=== PATIENT | male | born 1955 | race Caucasian/White ===

== ENCOUNTER 2016-10-20 22:27 | Inpatient (IN) | payer MEDICARE, MEDICAID ==
[~2016-10-20] VITALS: Ht 182.9 cm; Wt 82.2 kg
--- NOTE | ~2016-10-20 | CON ---
[place], [place] REPORT OF CONSULTATION NAME: ALVARO SOTO UNIT #: [id number] ROOM: [place] [address] DOCTOR: CHEY BUCKLEY MD BIRTHDATE: [birth year] DOS: 10/21/2016 ADDENDUM CARDIOLOGY CONSULTATION REASON FOR CONSULTATION: Chest pain and elevated cardiac enzymes. This note is an addendum to the note dictated by Dr. Hoa Bhagat. I personally examined and assessed the patient. Rhythm strips, labs reviewed. Case was discussed with the resident physician, Dr. Bhagat's examination and assessment reflects my work. The patient is admitted for syncope and found to have elevated cardiac enzymes and Cardiology was consulted. PHYSICAL EXAMINATION: NECK: Supple. LUNGS: Clear anteriorly. HEART: Regular rhythm. DIAGNOSES: 1. [id number] myocardial infarction. 2. Syncope. 3. History of hypertension. 4. History of dyslipidemia. 5. Remote tobacco use. 6. Abnormal stress test in 2016. RECOMMENDATIONS: 1. Cardiac catheterization is recommended due to his elevated cardiac enzymes and CAD risk factors and abnormal stress test last year. 2. Risks, complications discussed and he is agreeable to proceed with cardiac catheterization today at [facility] in [place], [place]. 3. Continue the aspirin, beta-corrina, statins, MELISSA inhibitors and heparin. Again, this note is an addendum to the note dictated by Dr. Hoa Bhagat. [place], [place] REPORT OF CONSULTATION NAME: ALVARO SOTO UNIT #: [id number] ROOM: [place] [address] DOCTOR: CHEY BUCKLEY MD BIRTHDATE: [birth year] CHEY BUCKLEY MD CM:CONSTR:REPORT OF CONSULTATION 1146 10/22/16 0632 interface
--- NOTE | ~2016-10-20 | CON ---
[place], [place] REPORT OF CONSULTATION [id number] UNIT #: [id number] ROOM: [place] [address] DOCTOR: YAYO ADDISON MD BIRTHDATE: [birth year] DOS: 10/21/2016 PSYCHIATRIC CONSULT CHIEF COMPLAINT: "The whole last 27 hours are blank for me." HISTORY OF PRESENT ILLNESS: This is a 60-year-old white male who was brought in to the Emergency Room after he awoke on the kitchen floor. He was uncertain how long he had been there. When brought in to the Emergency Room at [facility] with the diagnosis of syncope, he was ultimately sent to ICU for further evaluation of an NC. From a psychiatric standpoint, the patient follows with Aniyah Nuñez, a nurse practitioner at the [facility]. He is currently prescribed Abilify 15 mg a day, Klonopin 1 mg t.i.d. p.r.n., Cymbalta 60 mg a day, Remeron 60 mg a day and Ambien 10 mg a day and he has been on the Ambien for several years without interruption MENTAL STATUS: He is alert and oriented, stating that he feels that his current medications work. He denies side effects from them. He, however, is willing to allow me to adjust further; however, he is being transferred to another hospital for a cardiac catheterization at this point. DIAGNOSIS: Bipolar type 2. PLAN: At this point, I really cannot do anything different with his medications as his cardiac issues are primary. I would, however, consider lowering his Remeron from 60 mg a day, which is an extremely high dose, down to 15 mg a day. This dose of Remeron would provide maximum sedation and may allow him then to discontinue the Ambien, which has been chronic in nature. He also reports to me that he has gained in excess of 20 pounds over the last year and he has never been tested for sleep apnea. He reports frequent awakenings throughout the night and waking up in the morning, being extremely fatigued. I strongly recommend that he would go for sleep studies to rule out the possibility of sleep apnea. His psychotropic regimen is quite complicated and redundant, and I do believe that if reviewed his medications can be streamlined so that he is less symptomatic and has less potential side effects. This can be done all as an outpatient. YAYO ADDISON MD CM:CONSTR:REPORT OF CONSULTATION 0934 10/22/16 0156 interface
[~2016-10-20 22:27] MED LIST: ABILIFY15 MG PO; ABILIFY20 MG PO; ALBUTEROL0.09 MG/A2 INH; ALENDRONATE SOD70 M1 PO; AMBIEN10 M1 PO; ANTIVERT/2525 MG PO; ASPIRIN CHEWABL81 M1 PO; ATORVASTATIN CA80 M1 PO; B-COMPLEX-501 CAP PO; BACTRIM DS 8001 TA1 PO; BACTROBAN CREAM15 GM T; CEFTRIAXON1 GM/50 ML IV; CELEBREX100 MG PO; CELEBREX200 MG PO; CLINDAMYCIN HC300 MG PO; CLINDAMYCIN PHOSPH1% T; CLINDAMYCIN300 MG PO; CLONAZEPAM0.5 M2 PO; CLONAZEPAM1 MG PO; CYMBALTA60 M1 PO; CYMBALTA60 MG PO; DARVOCET N 1001 TAB PO; DIAZIDE PO; DOXYCYCLINE100 M3 PO; DYAZIDE 25 MG-31 CAP PO; FOSAMAX70 M1 PO; HYDROCODONE BIT1 T11 PO; KEFLEX500 MG PO; KEPPRA500 MG PO; KLONOPIN WAFERS2 MG PO; KLONOPIN1 M1 PO; LAMICTAL100 MG PO; LAMICTAL200 MG PO; LASIX20 MG PO; LASIX40 MG PO; LISINOPRIL10 M1 PO; LOPRESSOR25 MG PO; MAPAP325 MG PO; MOBIC7.5 MG PO; MOTRIN800 MG PO; MULTI VITAMINS1 TAB PO; NATURE'S BLEND F1 MG PO; NORCO 5-325 TA1 EACH PO; NORCO 7.5-3251 EACH PO; OYSTER SHELL 51 EACH PO; Oscal,Oyster S500 MG PO; PERCOCET 325 MG1 TA2 PO; PERCOCET 325 MG1 TA5 PO; PROAIR HFA8.5 GM IH; PROAIR HFA8.5 GM INH; REMERON SOLTAB15 MG PO; REMERON SOLTAB30 MG PO; REMERON30 M1 PO; SIMVASTATIN20 MG PO; THE MEDICINE S400 IU PO; TOPAMAX25 M3 PO; TOPROL XL25 MG PO; TOPROL XL50 M1 PO; TRAMADOL HCL50 MG PO; TRAMADOL50 MG PO; TRIAMTERENE & H1 CA1 PO; TRIAMTERENE & H1 CAP PO; TRIAMTERENE AND1 TA1 PO; VIBRAMYCIN100 MG PO; VICODIN 500 MG-1 TAB PO; VITAMIN D1000 IU PO; ZANTAC 150150 MG PO; ZANTAC150 MG PO; ZESTRIL10 MG PO; ZITHROMAX Z PA250 MG PO; ZOCOR20 MG PO
[2016-10-20 22:32] VITALS: BP 136/100
[2016-10-20] MEDS ORDERED: LIPITOR10 MG PO (22:41)
[2016-10-20] MEDS ORDERED: LASIX40 MG PO (22:41)
[2016-10-20] MEDS ORDERED: VITAMIN D31000 IU PO (22:42)
[2016-10-20 23:12] LABS: HEMATOCRIT 34.3 % (42.0-52.0); HEMOGLOBIN 11.7 g/dl (14.0-18.0); MEAN CELL VOLUME 88.4 fl (80.0-94.0); MEAN CORPUSCULAR HGB 30.2 pg (27.0-31.0); MEAN CORPUSCULAR HGB CONC 34.1 g/dl (33.0-37.0); MEAN PLATELET VOLUME 7.5 fl (9.6-12.3); PLATELET COUNT AUTOMATED 415 10*3/uL (130-400); RED BLOOD COUNT 3.88 10*6/uL (4.50-5.90); RED CELL DISTRI WIDTH 15.9 % (0-14.5); WHITE BLOOD COUNT 15.9 10*3/uL (4.8-10.8)
[2016-10-20 23:30] LABS: BUN 13 mg/dl (7-24); CARBON DIOXIDE 30 mmol/L (21-32); CHLORIDE 91 mmol/L (98-107); CPK 160 U/L (39-308); EST GLOM FILT AFRICAN AMERICAN > 60 ml/min; GLUCOSE 117 mg/dL (65-99); MAGNESIUM 2.5 mg/dL (1.5-2.1); POTASSIUM 3.5 mmol/L (3.5-5.1); SODIUM 132 mmol/L (136-145)
[2016-10-20 23:33] LABS: BASOPHIL # 0.3 10*3/uL (0-0.1); BASOPHILS 2 % (0-1); LYMPHOCYTE # 2.2 10*3/uL (1.3-4.4); METAMYELOCYTES 1 % (0-0); MONOCYTE # 1.9 10*3/uL (0.1-1.0); MYELOCYTES 2 % (0-0); NEUTROPHILS 69 % (47-73); TOTAL CELLS COUNTED 100 #CELLS
[2016-10-20 23:34] LABS: PLATELET SUFFICIENCY HIGH (NORMAL)
[2016-10-20 23:35] LABS: C-REACTIVE PROTEIN < 0.29 MG/DL (0-0.3)
[2016-10-21 00:30] VITALS: BP 141/88
[2016-10-21 00:50] LABS: INTERNATIONAL NORM RATIO 0.9 (2.0-3.5); PROTHROMBIN TIME 9.5 SECONDS (9.0-12.4)
[2016-10-21 01:21] VITALS: BP 127/73
[2016-10-21 01:30] VITALS: BP 143/89
[2016-10-21] MEDS ORDERED: FOSAMAX70 M1 PO (02:27)
[2016-10-21 04:00] VITALS: BP 96/65
[2016-10-21 06:45] LABS: HEMATOCRIT 31.5 % (42.0-52.0); HEMOGLOBIN 10.6 g/dl (14.0-18.0); MEAN CELL VOLUME 89.5 fl (80.0-94.0); MEAN CORPUSCULAR HGB 30.1 pg (27.0-31.0); MEAN CORPUSCULAR HGB CONC 33.7 g/dl (33.0-37.0); MEAN PLATELET VOLUME 7.7 fl (9.6-12.3); PLATELET COUNT AUTOMATED 382 10*3/uL (130-400); RED BLOOD COUNT 3.52 10*6/uL (4.50-5.90); WHITE BLOOD COUNT 17.4 10*3/uL (4.8-10.8)
[2016-10-21 07:02] LABS: CKMB 11.2 ng/ml (0.5-3.6); TROPONIN I 6.26 ng/ml (<0.045)
[2016-10-21 07:04] LABS: HEMOGLOBIN A1c 6.6 % (4.8-5.6)
[2016-10-21 07:10] LABS: BASOPHIL # 0.2 10*3/uL (0-0.1); BASOPHILS 1 % (0-1); LYMPHOCYTE # 1.9 10*3/uL (1.3-4.4); METAMYELOCYTES 2 % (0-0); NEUTROPHIL # 13.9 10*3/uL (2.3-7.9); NEUTROPHILS 80 % (47-73); TOTAL CELLS COUNTED 100 #CELLS
[2016-10-21 07:11] LABS: PLATELET SUFFICIENCY NORMAL (NORMAL); POLYCHROMASIA SLIGHT
[2016-10-21 07:18] LABS: PROTHROMBIN TIME 10.1 SECONDS (9.0-12.4)
[2016-10-21 07:28] LABS: CHLORIDE 95 mmol/L (98-107); POTASSIUM 3.8 mmol/L (3.5-5.1); SODIUM 133 mmol/L (136-145)
[2016-10-21 07:41] LABS: ALBUMIN 3.2 gm/dl (3.1-4.5); ALKALINE PHOSPHATASE 67 U/L (45-117); BILIRUBIN, TOTAL 0.5 mg/dl (0.2-1.0); BUN 12 mg/dl (7-24); CARBON DIOXIDE 30 mmol/L (21-32); CHOLESTEROL 164 mg/dL (<200); EST GLOM FILT AFRICAN AMERICAN > 60 ml/min; FREE T4 0.96 ng/dl (0.76-1.46); GLUCOSE 124 mg/dL (65-99); HDL CHOLESTEROL 87 mg/dl (40-60); LDL CHOLESTEROL 64 mg/dL (9-159); MAGNESIUM 1.9 mg/dL (1.5-2.1); PHOSPHOROUS 2.6 mg/dL (2.5-4.9); SGOT/AST 31 IU/L (3-35); SGPT/ALT 39 U/L (12-78); THYROID STIM HORMONE (HS) 0.725 uIU/ml (0.358-4.75); TOTAL PROTEIN 6.1 gm/dL (6.4-8.2); TRIGLYCERIDES 67 mg/dl (<150); VLDL CHOLESTEROL 13 mg/dL (6-40)
[2016-10-21 08:00] VITALS: BP 124/75
[2016-10-21 09:27] LABS: FOLIC ACID 22.31 ng/mL (>5.38)
[2016-10-21 10:00] LABS: VITAMIN D, 25-HYDROXY 21.5 ng/mL (30-100)
[2016-10-21 12:42] LABS: CKMB 7.8 ng/ml (0.5-3.6); TROPONIN I 4.53 ng/ml (<0.045)
== END 2016-10-21 12:20 | disposition other institution (70) | DRG 281 ==
LOC: ED 22:27 → EDHOLD 23:59 → ICCU 23:59
PROVIDERS: Emergency Medicine Emergency Medical Services; Student in an Organized Health Care Education/Training Program
DX: I21.4 Non-ST elevation (NSTEMI) myocardial infarction (principal); E44.0 Moderate protein-calorie malnutrition; R65.10 Systemic inflammatory response syndrome (SIRS) of non-infectious origin without acute organ dysfunction; E87.1 Hypo-osmolality and hyponatremia; E11.65 Type 2 diabetes mellitus with hyperglycemia; E83.41 Hypermagnesemia; E83.51 Hypocalcemia; F31.9 Bipolar disorder, unspecified; I10 Essential (primary) hypertension; R00.0 Tachycardia, unspecified; D72.829 Elevated white blood cell count, unspecified; D64.9 Anemia, unspecified; D47.3 Essential (hemorrhagic) thrombocythemia; M81.0 Age-related osteoporosis without current pathological fracture; R26.9 Unspecified abnormalities of gait and mobility; M54.9 Dorsalgia, unspecified; M48.00 Spinal stenosis, site unspecified; E53.8 Deficiency of other specified B group vitamins; E55.9 Vitamin D deficiency, unspecified; Z87.891 Personal history of nicotine dependence; I25.2 Old myocardial infarction; Z68.24 Body mass index [BMI] 24.0-24.9, adult; Z88.0 Allergy status to penicillin; Z88.1 Allergy status to other antibiotic agents; R55 Syncope and collapse

== ENCOUNTER 2017-01-16 13:25 | Emergency (ER) | payer MEDICARE, MEDICAID ==
[~2017-01-16] VITALS: Ht 180.3 cm; Wt 86.2 kg
[~2017-01-16 13:25] MED LIST changes: +LIPITOR10 MG PO; +VITAMIN D31000 IU PO
[2017-01-16 15:50] LABS: RED CELL DISTRI WIDTH 14.1 % (0-14.5)
[2017-01-16 15:56] LABS: INTERNATIONAL NORM RATIO 0.9 (2.0-3.5); PROTHROMBIN TIME 9.6 SECONDS (9.0-12.4)
[2017-01-16 16:04] LABS: ALBUMIN 3.8 gm/dl (3.1-4.5); ALKALINE PHOSPHATASE 102 U/L (45-117); BILIRUBIN, TOTAL 0.4 mg/dl (0.2-1.0); BUN 20 mg/dl (7-24); CARBON DIOXIDE 29 mmol/L (21-32); CHLORIDE 90 mmol/L (98-107); EST GLOM FILT AFRICAN AMERICAN > 60 ml/min; GLUCOSE 154 mg/dL (65-99); POTASSIUM 4.4 mmol/L (3.5-5.1); SGOT/AST 27 IU/L (3-35); SGPT/ALT 41 U/L (12-78); SODIUM 128 mmol/L (136-145)
[2017-01-16 16:40] LABS: HEMATOCRIT 36.8 % (42.0-52.0); HEMOGLOBIN 12.5 g/dl (14.0-18.0); MEAN CELL VOLUME 92.5 fl (80.0-94.0); MEAN CORPUSCULAR HGB 31.4 pg (27.0-31.0); PLATELET COUNT AUTOMATED 338 10*3/uL (130-400); RED BLOOD COUNT 3.98 10*6/uL (4.50-5.90); WHITE BLOOD COUNT 15.6 10*3/uL (4.8-10.8)
[2017-01-16 17:00] LABS: LYMPHOCYTE # 1.2 10*3/uL (1.3-4.4); METAMYELOCYTES 1 % (0-0); MONOCYTE # 0.6 10*3/uL (0.1-1.0); NEUTROPHIL # 13.6 10*3/uL (2.3-7.9); NEUTROPHILS 87 % (47-73); PLATELET SUFFICIENCY NORMAL (NORMAL); TOTAL CELLS COUNTED 100 #CELLS
[2017-01-16 17:01] LABS: POLYCHROMASIA SLIGHT
== END 2017-01-16 21:43 | disposition short-term general hospital (02) ==
LOC: ED 13:25
PROVIDERS: Nurse Practitioner Family
DX: S72.002A Fracture of unspecified part of neck of left femur, initial encounter for closed fracture (principal); Z88.0 Allergy status to penicillin; Z88.1 Allergy status to other antibiotic agents; Z79.899 Other long term (current) drug therapy; W18.39XA Other fall on same level, initial encounter; Y93.01 Activity, walking, marching and hiking; Y92.89 Other specified places as the place of occurrence of the external cause; Y99.8 Other external cause status

== ENCOUNTER 2017-03-19 15:55 | Emergency (ER) | payer MEDICARE, MEDICAID ==
[~2017-03-19] VITALS: Wt 83.9 kg
[2017-03-19 17:17] LABS: BASO # 0.1 10*3/uL (0.0-0.1); BASO % 0.9 % (0.0-1.0); EOS # 0.4 10*3/uL (0.0-0.4); EOS % 4.3 % (1.0-4.0); HEMATOCRIT 32.7 % (42.0-52.0); HEMOGLOBIN 10.2 g/dl (14.0-18.0); LYMPH # 2.2 10*3/uL (1.3-4.4); LYMPH % 23.7 % (27.0-41.0); MEAN CELL VOLUME 89.6 fl (80.0-94.0); MEAN CORPUSCULAR HGB 27.9 pg (27.0-31.0); MEAN CORPUSCULAR HGB CONC 31.2 g/dl (33.0-37.0); MEAN PLATELET VOLUME 8.4 fl (9.6-12.3); MONO # 0.8 10*3/uL (0.1-1.0); MONO % 8.5 % (3.0-9.0); NEUT # 5.7 10*3/uL (2.3-7.9); NEUT % 61.8 % (47.0-73.0); PLATELET COUNT AUTOMATED 400 10*3/uL (130-400); RED BLOOD COUNT 3.65 10*6/uL (4.50-5.90); RED CELL DISTRI WIDTH 14.2 % (0-14.5); WHITE BLOOD COUNT 9.3 10*3/uL (4.8-10.8)
[2017-03-19 17:31] LABS: ALBUMIN 3.1 gm/dl (3.1-4.5); ALKALINE PHOSPHATASE 99 U/L (45-117); BUN 10 mg/dl (7-24); CHLORIDE 101 mmol/L (98-107); CREATININE 1.12 mg/dL (0.70-1.30); POTASSIUM 4.4 mmol/L (3.5-5.1); SGOT/AST 15 IU/L (3-35); SGPT/ALT 18 U/L (12-78); SODIUM 137 mmol/L (136-145); TOTAL PROTEIN 6.4 gm/dL (6.4-8.2)
[2017-03-19] MEDS ORDERED: bactrim ds PO (18:17)
[2017-03-19 19:20] LABS: ACT PARTIAL THROMBO TIME 29.2 SECONDS (20.8-31.5)
== END 2017-03-19 18:51 | disposition home or self-care (01) ==
LOC: ED 15:55
PROVIDERS: Physician Assistant
DX: L03.115 Cellulitis of right lower limb (principal); Z88.0 Allergy status to penicillin; Z88.1 Allergy status to other antibiotic agents; Z79.899 Other long term (current) drug therapy

== ENCOUNTER 2017-04-03 18:27 | Inpatient (IN) | payer MEDICARE, MEDICAID ==
[~2017-04-03] VITALS: Ht 180.3 cm; Wt 84.6 kg
--- NOTE | ~2017-04-03 | PR ---
[place], [place] PROGRESS NOTE NAME: ALVARO SOTO [facility] #: [id number] UNIT #: [id number] ROOM: 526 DOCTOR: KAYLYN BUCK MD BIRTHDATE: [birth year] DOS: 04/04/2017 SUBJECTIVE: The patient has been admitted to hospital from Emergency Room with cellulitis of the right leg. He was being treated as outpatient for this, but was not getting better, so he came to Emergency Department from where he needed to be admitted to hospital. The patient has past history of chronic pain, bipolar disorder, degenerative disk disease of the neck and back, depression, folic acid deficiency, fractured pelvis in the past, difficulty in walking herniated disk, history of fracture of the left femur neck, malnutrition due to low protein deficiency, osteoporosis, sacral plexus, spinal stenosis. The patient is feeling little better. He states his pain in the legs is better. His swelling and redness of leg is showing some improvement. His CBC showed hypochromic anemia with hemoglobin 8.8, hematocrit 27.4. Basic metabolic profile shows calcium 8.4, other values are all normal. Lipid profile is normal. Hemoglobin A1c 5.8. Vitamin B12 and folic acid and vitamin D all are normal. The patient will be continued on the present treatment. KAYLYN BUCK MD CM:PNHAWA [id number] KAYLYN BUCK MD 04/07/17 0541 interface
--- NOTE | ~2017-04-03 | PR ---
[place], [place] PROGRESS NOTE NAME: ALVARO SOTO [facility] #: [id number] UNIT #: [id number] ROOM: 526 DOCTOR: KAYLYN BUCK MD BIRTHDATE: [birth year] DOS: SUBJECTIVE: A 61-year-old male who has been admitted to hospital with cellulitis of the right leg and he has also difficulty in walking due to severe problem with the chronic backache and radiculopathy and his MRSA surveillance was negative. Venous ultrasound of the lower extremity did not show any evidence of deep vein thrombosis. B12 and folic acid is normal. Hemoglobin A1c 5.8. The patient is feeling somewhat better. Swelling of the leg is better. OBJECTIVE: VITAL SIGNS: His blood pressure 136/58, pulse is 77, respirations 20 and temperature 97.3. CHEST: Clear. HEART: Regular. ABDOMEN: Soft. KAYLYN BUCK MD CM:PNTRANS [id number] KAYLYN BUCK MD 04/05/17 1509 interface
[~2017-04-03 18:27] MED LIST changes: +bactrim ds PO
[2017-04-03 18:45] VITALS: BP 122/74
[2017-04-03 19:24] LABS: BASO # 0.1 10*3/uL (0.0-0.1); BASO % 0.8 % (0.0-1.0); EOS # 0.4 10*3/uL (0.0-0.4); EOS % 6.1 % (1.0-4.0); HEMATOCRIT 31.1 % (42.0-52.0); HEMOGLOBIN 9.7 g/dl (14.0-18.0); LYMPH # 1.4 10*3/uL (1.3-4.4); LYMPH % 24.4 % (27.0-41.0); MEAN CELL VOLUME 89.9 fl (80.0-94.0); MEAN CORPUSCULAR HGB CONC 31.2 g/dl (33.0-37.0); MEAN PLATELET VOLUME 8.5 fl (9.6-12.3); MONO # 0.6 10*3/uL (0.1-1.0); MONO % 10.9 % (3.0-9.0); NEUT # 3.3 10*3/uL (2.3-7.9); NEUT % 56.8 % (47.0-73.0); PLATELET COUNT AUTOMATED 472 10*3/uL (130-400); RED BLOOD COUNT 3.46 10*6/uL (4.50-5.90); RED CELL DISTRI WIDTH 15.4 % (0-14.5); WHITE BLOOD COUNT 5.9 10*3/uL (4.8-10.8)
[2017-04-03 19:25] VITALS: BP 121/73
[2017-04-03 19:43] LABS: ALBUMIN 2.8 gm/dl (3.1-4.5); ALKALINE PHOSPHATASE 202 U/L (45-117); BUN 11 mg/dl (7-24); CHLORIDE 95 mmol/L (98-107); CREATININE 1.21 mg/dL (0.70-1.30); POTASSIUM 4.2 mmol/L (3.5-5.1); SGOT/AST 49 IU/L (3-35); SGPT/ALT 50 U/L (12-78); SODIUM 133 mmol/L (136-145); TOTAL PROTEIN 7.2 gm/dL (6.4-8.2); TROPONIN I 0.024 ng/ml (<0.045)
[2017-04-03 20:44] VITALS: BP 125/85
[2017-04-04] VITALS: BP 123/61
[2017-04-04 06:27] LABS: BASO % 0.7 % (0.0-1.0); EOS # 0.4 10*3/uL (0.0-0.4); EOS % 6.8 % (1.0-4.0); HEMATOCRIT 27.4 % (42.0-52.0); HEMOGLOBIN 8.8 g/dl (14.0-18.0); LYMPH # 1.4 10*3/uL (1.3-4.4); LYMPH % 25.8 % (27.0-41.0); MEAN CORPUSCULAR HGB 27.9 pg (27.0-31.0); MEAN CORPUSCULAR HGB CONC 32.1 g/dl (33.0-37.0); MEAN PLATELET VOLUME 8.3 fl (9.6-12.3); MONO # 0.6 10*3/uL (0.1-1.0); MONO % 11.4 % (3.0-9.0); NEUT # 2.9 10*3/uL (2.3-7.9); PLATELET COUNT AUTOMATED 426 10*3/uL (130-400); RED BLOOD COUNT 3.15 10*6/uL (4.50-5.90); RED CELL DISTRI WIDTH 15.3 % (0-14.5); WHITE BLOOD COUNT 5.4 10*3/uL (4.8-10.8)
[2017-04-04 07:02] LABS: BUN 8 mg/dl (7-24); CHLORIDE 101 mmol/L (98-107); CHOLESTEROL 159 mg/dL (<200); CREATININE 0.94 mg/dL (0.70-1.30); HDL CHOLESTEROL 59 mg/dl (40-60); LDL CHOLESTEROL 79 mg/dL (9-159); PHOSPHOROUS 3.9 mg/dL (2.5-4.9); POTASSIUM 3.9 mmol/L (3.5-5.1); SODIUM 138 mmol/L (136-145); TRIGLYCERIDES 105 mg/dl (<150); VLDL CHOLESTEROL 21 mg/dL (6-40)
[2017-04-04 08:00] VITALS: BP 160/70
[2017-04-04 08:25] LABS: VITAMIN D, 25-HYDROXY 34.7 ng/mL (30-100)
[2017-04-04 16:00] VITALS: BP 122/64
[2017-04-05] VITALS: BP 115/69
[2017-04-05 08:00] VITALS: BP 136/58
[2017-04-05 12:00] VITALS: BP 138/60
[2017-04-05 16:00] VITALS: BP 145/63
[2017-04-05 20:00] VITALS: BP 151/69
[2017-04-06] VITALS: BP 152/75
[2017-04-06 08:00] VITALS: BP 148/83
[2017-04-06 16:00] VITALS: BP 140/77
[2017-04-06 20:00] VITALS: BP 177/73
[2017-04-07] VITALS (7 sets, daily range): BP systolic 156–184; BP diastolic 70–92
[2017-04-07 07:04] LABS: BASO # 0.1 10*3/uL (0.0-0.1); BASO % 0.7 % (0.0-1.0); EOS # 0.4 10*3/uL (0.0-0.4); EOS % 6.3 % (1.0-4.0); HEMATOCRIT 27.7 % (42.0-52.0); LYMPH # 1.4 10*3/uL (1.3-4.4); LYMPH % 19.9 % (27.0-41.0); MEAN CELL VOLUME 87.4 fl (80.0-94.0); MEAN CORPUSCULAR HGB 28.4 pg (27.0-31.0); MEAN CORPUSCULAR HGB CONC 32.5 g/dl (33.0-37.0); MEAN PLATELET VOLUME 8.6 fl (9.6-12.3); MONO # 0.6 10*3/uL (0.1-1.0); MONO % 9.4 % (3.0-9.0); NEUT # 4.2 10*3/uL (2.3-7.9); NEUT % 62.7 % (47.0-73.0); PLATELET COUNT AUTOMATED 491 10*3/uL (130-400); RED BLOOD COUNT 3.17 10*6/uL (4.50-5.90); RED CELL DISTRI WIDTH 15.3 % (0-14.5); WHITE BLOOD COUNT 6.8 10*3/uL (4.8-10.8)
[2017-04-07 07:33] LABS: ALBUMIN 2.8 gm/dl (3.1-4.5); ALKALINE PHOSPHATASE 182 U/L (45-117); BUN 6 mg/dl (7-24); CHLORIDE 102 mmol/L (98-107); CREATININE 0.88 mg/dL (0.70-1.30); SGOT/AST 28 IU/L (3-35); SGPT/ALT 34 U/L (12-78); SODIUM 137 mmol/L (136-145); TOTAL PROTEIN 6.5 gm/dL (6.4-8.2)
[2017-04-08] VITALS: BP 156/75
[2017-04-08 06:36] LABS: BASO # 0.1 10*3/uL (0.0-0.1); BASO % 0.9 % (0.0-1.0); EOS # 0.4 10*3/uL (0.0-0.4); EOS % 6.6 % (1.0-4.0); HEMATOCRIT 29.5 % (42.0-52.0); HEMOGLOBIN 9.3 g/dl (14.0-18.0); LYMPH # 1.5 10*3/uL (1.3-4.4); LYMPH % 22.3 % (27.0-41.0); MEAN CELL VOLUME 86.5 fl (80.0-94.0); MEAN CORPUSCULAR HGB 27.3 pg (27.0-31.0); MEAN CORPUSCULAR HGB CONC 31.5 g/dl (33.0-37.0); MEAN PLATELET VOLUME 8.3 fl (9.6-12.3); MONO # 0.7 10*3/uL (0.1-1.0); MONO % 10.5 % (3.0-9.0); NEUT # 3.9 10*3/uL (2.3-7.9); NEUT % 58.5 % (47.0-73.0); PLATELET COUNT AUTOMATED 493 10*3/uL (130-400); RED BLOOD COUNT 3.41 10*6/uL (4.50-5.90); RED CELL DISTRI WIDTH 15.6 % (0-14.5); WHITE BLOOD COUNT 6.7 10*3/uL (4.8-10.8)
[2017-04-08 06:59] LABS: ALBUMIN 2.9 gm/dl (3.1-4.5); ALKALINE PHOSPHATASE 175 U/L (45-117); BUN 8 mg/dl (7-24); CHLORIDE 100 mmol/L (98-107); CREATININE 1.07 mg/dL (0.70-1.30); POTASSIUM 3.7 mmol/L (3.5-5.1); SGOT/AST 23 IU/L (3-35); SGPT/ALT 31 U/L (12-78); SODIUM 136 mmol/L (136-145); TOTAL PROTEIN 6.5 gm/dL (6.4-8.2)
[2017-04-08 08:00] VITALS: BP 138/86
[2017-04-08] MEDS ORDERED: CEPHALEXIN500 M1 PO (13:17)
[2017-04-08] MEDS ORDERED: DOXYCYCLINE100 M3 PO (13:17)
== END 2017-04-08 15:54 | disposition home or self-care (01) | DRG 603 ==
LOC: ED 18:27 → 5E 21:18 → EDHOLD 21:18 → 5E 21:30
PROVIDERS: Internal Medicine Hospice and Palliative Medicine; Nurse Practitioner Family; Student in an Organized Health Care Education/Training Program; ADMIT Internal Medicine
DX: L03.115 Cellulitis of right lower limb (principal); E44.0 Moderate protein-calorie malnutrition; E87.1 Hypo-osmolality and hyponatremia; R74.0 Nonspecific elevation of levels of transaminase and lactic acid dehydrogenase [LDH]; M51.35 Other intervertebral disc degeneration, thoracolumbar region; M81.0 Age-related osteoporosis without current pathological fracture; D64.9 Anemia, unspecified; I25.10 Atherosclerotic heart disease of native coronary artery without angina pectoris; F31.9 Bipolar disorder, unspecified; M54.9 Dorsalgia, unspecified; G89.29 Other chronic pain; E53.8 Deficiency of other specified B group vitamins; F41.1 Generalized anxiety disorder; E55.9 Vitamin D deficiency, unspecified; I10 Essential (primary) hypertension; K21.9 Gastro-esophageal reflux disease without esophagitis; G47.00 Insomnia, unspecified; Z79.01 Long term (current) use of anticoagulants; Z79.82 Long term (current) use of aspirin; Z78.9 Other specified health status; Z88.0 Allergy status to penicillin; Z88.8 Allergy status to other drugs, medicaments and biological substances; Z68.32 Body mass index [BMI] 32.0-32.9, adult; Z66 Do not resuscitate; Z51.5 Encounter for palliative care

== ENCOUNTER 2020-07-09 14:42 | Inpatient (IN) | payer OTHER ==
[~2020-07-09] VITALS: Ht 180 cm; Wt 88.5 kg
[~2020-07-09 14:42] MED LIST changes: +CEPHALEXIN500 M1 PO
[2020-07-09 14:43] VITALS: BP 97/46
[2020-07-09 15:54] LABS: BASO # 0.1 10*3/uL (0.0-0.1); BASO % 0.5 % (0.0-1.0); EOS # 0.2 10*3/uL (0.0-0.4); EOS % 1.9 % (1.0-4.0); HEMATOCRIT 38.5 % (42.0-52.0); LYMPH # 1.3 10*3/uL (1.3-4.4); LYMPH % 13.3 % (27.0-41.0); MEAN CELL VOLUME 85.4 fl (80.0-94.0); MEAN CORPUSCULAR HGB 29.5 pg (27.0-31.0); MEAN CORPUSCULAR HGB CONC 34.5 g/dl (33.0-37.0); MEAN PLATELET VOLUME 8.7 fl (9.6-12.3); MONO # 0.6 10*3/uL (0.1-1.0); MONO % 5.7 % (3.0-9.0); NEUT # 7.7 10*3/uL (2.3-7.9); NEUT % 78.1 % (47.0-73.0); PLATELET COUNT AUTOMATED 352 10*3/uL (130-400); RED BLOOD COUNT 4.51 10*6/uL (4.50-5.90); RED CELL DISTRI WIDTH 13.2 % (0-14.5); WHITE BLOOD COUNT 9.9 10*3/uL (4.8-10.8)
[2020-07-09 16:00] VITALS: BP 94/56
[2020-07-09 16:03] LABS: ACT PARTIAL THROMBO TIME 26.6 SECONDS (20.0-32.1); INTERNATIONAL NORM RATIO 0.9 (2.0-3.5)
[2020-07-09 16:09] LABS: ALBUMIN 3.8 gm/dl (3.1-4.5); CREATININE 2.27 mg/dL (0.70-1.30); POTASSIUM 3.5 mmol/L (3.5-5.1); TOTAL PROTEIN 7.9 gm/dL (6.4-8.2); TROPONIN I 0.042 ng/ml (<0.045)
[2020-07-09 19:57] VITALS: BP 98/48
[2020-07-09 20:35] VITALS: BP 147/95
[2020-07-09 20:42] LABS: CREATININE 2.12 mg/dL (0.70-1.30); POTASSIUM 3.1 mmol/L (3.5-5.1)
[2020-07-09] MEDS ORDERED: GABAPENTIN100 M2 PO (21:33)
[2020-07-09] MEDS ORDERED: ATARAX,VISTARIL10 MG PO (21:34)
[2020-07-09] MEDS ORDERED: B COMPLEX1 EACH PO (21:36)
[2020-07-09] MEDS ORDERED: LASIX20 MG PO (21:37)
[2020-07-09 23:35] LABS: BILIRUBIN Negative (Negative); BLOOD Negative (Negative); CLARITY Clear (Clear); COLOR Yellow (Yellow); GLUCOSE 3+ (Negative); KETONE Negative (Negative); LEUKO ESTERASE Negative (Negative); NITRITE Negative (Negative); PH 5.5 (4.5-8.0); UROBILINOGEN 0.2 E.U./dl (0.0-1.0)
[2020-07-09 23:53] LABS: RBC 0-2 rbc/hpf (0-2); WBC 0-2 wbc/hpf (0-5)
[2020-07-10] VITALS: BP 80/49
[2020-07-10 00:18] LABS: CREATININE 2.02 mg/dL (0.70-1.30); POTASSIUM 2.7 mmol/L (3.5-5.1)
[2020-07-10 00:34] LABS: URINE CREATININE RANDOM 48.3 mg/dL
[2020-07-10 06:47] LABS: BASO # 0.1 10*3/uL (0.0-0.1); BASO % 0.6 % (0.0-1.0); EOS # 0.3 10*3/uL (0.0-0.4); EOS % 3.1 % (1.0-4.0); HEMATOCRIT 31.8 % (42.0-52.0); LYMPH # 1.9 10*3/uL (1.3-4.4); LYMPH % 23.8 % (27.0-41.0); MEAN CELL VOLUME 86.9 fl (80.0-94.0); MEAN CORPUSCULAR HGB 29.8 pg (27.0-31.0); MEAN CORPUSCULAR HGB CONC 34.3 g/dl (33.0-37.0); MEAN PLATELET VOLUME 8.8 fl (9.6-12.3); MONO # 0.5 10*3/uL (0.1-1.0); MONO % 6.4 % (3.0-9.0); NEUT # 5.3 10*3/uL (2.3-7.9); NEUT % 65.6 % (47.0-73.0); PLATELET COUNT AUTOMATED 309 10*3/uL (130-400); RED BLOOD COUNT 3.66 10*6/uL (4.50-5.90); RED CELL DISTRI WIDTH 13.2 % (0-14.5); WHITE BLOOD COUNT 8.1 10*3/uL (4.8-10.8)
[2020-07-10 07:25] LABS: ALBUMIN 3.1 gm/dl (3.1-4.5); CREATININE 1.66 mg/dL (0.70-1.30); POTASSIUM 3.1 mmol/L (3.5-5.1); TOTAL PROTEIN 6.3 gm/dL (6.4-8.2)
[2020-07-10 07:30] LABS: THYROID STIM HORMONE (HS) 1.65 uIU/ml (0.358-4.75); VITAMIN D, 25-HYDROXY 40.3 ng/mL (30-100)
[2020-07-10 08:00] VITALS: BP 94/65
[2020-07-10 09:20] VITALS: BP 102/64
[2020-07-10 12:00] VITALS: BP 145/65
[2020-07-10 16:00] VITALS: BP 94/56
[2020-07-10 16:55] LABS: ALBUMIN 3.3 gm/dl (3.1-4.5); CREATININE 1.59 mg/dL (0.70-1.30); TOTAL PROTEIN 6.9 gm/dL (6.4-8.2)
[2020-07-10 17:00] LABS: POTASSIUM 4.3 mmol/L (3.5-5.1)
[2020-07-10 20:00] VITALS: BP 104/91
[2020-07-11] VITALS: BP 158/93
[2020-07-11 06:26] LABS: BASO # 0.1 10*3/uL (0.0-0.1); BASO % 0.8 % (0.0-1.0); EOS # 0.2 10*3/uL (0.0-0.4); HEMATOCRIT 34.1 % (42.0-52.0); LYMPH # 1.7 10*3/uL (1.3-4.4); LYMPH % 27.6 % (27.0-41.0); MEAN CELL VOLUME 88.1 fl (80.0-94.0); MEAN CORPUSCULAR HGB 29.7 pg (27.0-31.0); MEAN CORPUSCULAR HGB CONC 33.7 g/dl (33.0-37.0); MEAN PLATELET VOLUME 8.7 fl (9.6-12.3); MONO # 0.5 10*3/uL (0.1-1.0); MONO % 8.4 % (3.0-9.0); NEUT # 3.5 10*3/uL (2.3-7.9); NEUT % 58.4 % (47.0-73.0); PLATELET COUNT AUTOMATED 319 10*3/uL (130-400); RED BLOOD COUNT 3.87 10*6/uL (4.50-5.90); RED CELL DISTRI WIDTH 13.3 % (0-14.5)
[2020-07-11 06:38] LABS: ALBUMIN 3.1 gm/dl (3.1-4.5); BUN 21 mg/dl (7-24); CHLORIDE 94 mmol/L (98-107); CREATININE 1.29 mg/dL (0.70-1.30); POTASSIUM 3.4 mmol/L (3.5-5.1); SGOT/AST 21 IU/L (3-35); SGPT/ALT 29 U/L (12-78); SODIUM 131 mmol/L (136-145)
[2020-07-11 06:39] LABS: ALKALINE PHOSPHATASE 117 U/L (45-117); TOTAL PROTEIN 6.3 gm/dL (6.4-8.2)
[2020-07-11 08:00] VITALS: BP 130/78
[2020-07-11 10:09] LABS: CREATININE,URINE 45.7 mg/dL (Not Estab.)
[2020-07-11 12:00] VITALS: BP 151/93
[2020-07-11 16:00] VITALS: BP 127/90
[2020-07-11 20:00] VITALS: BP 146/88
[2020-07-12] VITALS: BP 124/91
[2020-07-12 06:16] LABS: BASO # 0.1 10*3/uL (0.0-0.1); BASO % 0.8 % (0.0-1.0); EOS # 0.2 10*3/uL (0.0-0.4); EOS % 3.7 % (1.0-4.0); HEMATOCRIT 35.4 % (42.0-52.0); LYMPH # 1.4 10*3/uL (1.3-4.4); LYMPH % 22.9 % (27.0-41.0); MEAN CELL VOLUME 88.5 fl (80.0-94.0); MEAN CORPUSCULAR HGB 29.3 pg (27.0-31.0); MEAN CORPUSCULAR HGB CONC 33.1 g/dl (33.0-37.0); MEAN PLATELET VOLUME 8.4 fl (9.6-12.3); MONO # 0.5 10*3/uL (0.1-1.0); MONO % 7.9 % (3.0-9.0); NEUT # 3.8 10*3/uL (2.3-7.9); NEUT % 63.4 % (47.0-73.0); PLATELET COUNT AUTOMATED 329 10*3/uL (130-400); RED CELL DISTRI WIDTH 13.4 % (0-14.5); WHITE BLOOD COUNT 5.9 10*3/uL (4.8-10.8)
[2020-07-12 06:48] LABS: ALBUMIN 3.1 gm/dl (3.1-4.5); BUN 14 mg/dl (7-24); CHLORIDE 96 mmol/L (98-107); CREATININE 1.12 mg/dL (0.70-1.30); POTASSIUM 3.8 mmol/L (3.5-5.1); SGOT/AST 28 IU/L (3-35); SGPT/ALT 33 U/L (12-78); SODIUM 131 mmol/L (136-145); TOTAL PROTEIN 6.5 gm/dL (6.4-8.2)
[2020-07-12 06:49] LABS: ALKALINE PHOSPHATASE 125 U/L (45-117)
[2020-07-12 08:00] VITALS: BP 175/98
[2020-07-12 09:55] VITALS: BP 146/86
[2020-07-12 12:00] VITALS: BP 160/73
[2020-07-12 16:00] VITALS: BP 164/92
[2020-07-12 20:00] VITALS: BP 154/77
[2020-07-13] VITALS: BP 146/63
[2020-07-13 06:22] LABS: ALBUMIN 3.1 gm/dl (3.1-4.5); ALKALINE PHOSPHATASE 139 U/L (45-117); BUN 11 mg/dl (7-24); CHLORIDE 102 mmol/L (98-107); CREATININE 1.14 mg/dL (0.70-1.30); POTASSIUM 4.2 mmol/L (3.5-5.1); SGOT/AST 32 IU/L (3-35); SGPT/ALT 38 U/L (12-78); SODIUM 134 mmol/L (136-145); TOTAL PROTEIN 6.6 gm/dL (6.4-8.2)
[2020-07-13 06:25] LABS: BASO # 0.1 10*3/uL (0.0-0.1); BASO % 0.6 % (0.0-1.0); EOS # 0.3 10*3/uL (0.0-0.4); EOS % 3.4 % (1.0-4.0); HEMATOCRIT 36.1 % (42.0-52.0); LYMPH # 1.3 10*3/uL (1.3-4.4); LYMPH % 15.2 % (27.0-41.0); MEAN CELL VOLUME 90.5 fl (80.0-94.0); MEAN CORPUSCULAR HGB 29.8 pg (27.0-31.0); MEAN PLATELET VOLUME 8.4 fl (9.6-12.3); MONO # 0.6 10*3/uL (0.1-1.0); MONO % 7.3 % (3.0-9.0); NEUT # 6.2 10*3/uL (2.3-7.9); NEUT % 72.4 % (47.0-73.0); PLATELET COUNT AUTOMATED 329 10*3/uL (130-400); RED BLOOD COUNT 3.99 10*6/uL (4.50-5.90); RED CELL DISTRI WIDTH 13.5 % (0-14.5); WHITE BLOOD COUNT 8.6 10*3/uL (4.8-10.8)
[2020-07-13 08:00] VITALS: BP 154/79
[2020-07-13 12:00] VITALS: BP 139/61
[2020-07-13 16:00] VITALS: BP 158/79
[2020-07-13 20:00] VITALS: BP 134/85
[2020-07-14] VITALS: BP 120/52
[2020-07-14 06:49] LABS: BUN 11 mg/dl (7-24); CHLORIDE 106 mmol/L (98-107); CREATININE 1.11 mg/dL (0.70-1.30); POTASSIUM 4.1 mmol/L (3.5-5.1); SODIUM 137 mmol/L (136-145)
[2020-07-14 08:00] VITALS: BP 149/78
[2020-07-14 12:00] VITALS: BP 137/77
[2020-07-14] MEDS ORDERED: METOPROLOL TART50 M1 PO (14:28)
[2020-07-14] MEDS ORDERED: LANTUS SOL100 UNIT/1 SC ×3 (14:28→14:40)
[2020-07-14] MEDS ORDERED: TRAD5TAB1 PO (14:28)
[2020-07-14] MEDS ORDERED: LISINOPRIL10 M1 PO ×2 (14:28)
== END 2020-07-14 16:47 | disposition home health service (06) | DRG 637 ==
LOC: ED 14:42 → 5E 18:33 → EDHOLD 18:33 → 5E 19:22
PROVIDERS: Emergency Medicine; Internal Medicine Nephrology; Student in an Organized Health Care Education/Training Program; ADMIT Internal Medicine; ATTEND Internal Medicine
DX: E11.65 Type 2 diabetes mellitus with hyperglycemia (principal); N17.0 Acute kidney failure with tubular necrosis; E87.1 Hypo-osmolality and hyponatremia; E86.0 Dehydration; E83.41 Hypermagnesemia; F31.9 Bipolar disorder, unspecified; K21.9 Gastro-esophageal reflux disease without esophagitis; I25.10 Atherosclerotic heart disease of native coronary artery without angina pectoris; I10 Essential (primary) hypertension; F41.1 Generalized anxiety disorder; G47.00 Insomnia, unspecified; M81.0 Age-related osteoporosis without current pathological fracture; D64.9 Anemia, unspecified; E87.6 Hypokalemia; E87.8 Other disorders of electrolyte and fluid balance, not elsewhere classified; E78.1 Pure hyperglyceridemia; I95.9 Hypotension, unspecified; R91.1 Solitary pulmonary nodule; E11.40 Type 2 diabetes mellitus with diabetic neuropathy, unspecified; M51.26 Other intervertebral disc displacement, lumbar region; Z20.822 Contact with and (suspected) exposure to COVID-19; I25.2 Old myocardial infarction; Z88.0 Allergy status to penicillin; Z88.1 Allergy status to other antibiotic agents; Z79.899 Other long term (current) drug therapy

== ENCOUNTER 2020-07-16 20:13 | Inpatient (IN) | payer OTHER ==
[~2020-07-16] VITALS: Ht 180.3 cm; Wt 87.1 kg
[~2020-07-16 20:13] MED LIST changes: +ATARAX,VISTARIL10 MG PO; +B COMPLEX1 EACH PO; +GABAPENTIN100 M2 PO; +LANTUS SOL100 UNIT/1 SC; +METOPROLOL TART50 M1 PO; +TRAD5TAB1 PO
[2020-07-16 20:50] LABS: BASO # 0.1 10*3/uL (0.0-0.1); BASO % 0.7 % (0.0-1.0); EOS # 0.2 10*3/uL (0.0-0.4); EOS % 3.1 % (1.0-4.0); HEMATOCRIT 34.3 % (42.0-52.0); LYMPH # 0.3 10*3/uL (1.3-4.4); LYMPH % 3.5 % (27.0-41.0); MEAN CELL VOLUME 90.7 fl (80.0-94.0); MEAN CORPUSCULAR HGB 29.9 pg (27.0-31.0); MEAN CORPUSCULAR HGB CONC 32.9 g/dl (33.0-37.0); MEAN PLATELET VOLUME 8.4 fl (9.6-12.3); MONO # 0.7 10*3/uL (0.1-1.0); MONO % 9.2 % (3.0-9.0); NEUT # 5.9 10*3/uL (2.3-7.9); NEUT % 82.4 % (47.0-73.0); PLATELET COUNT AUTOMATED 300 10*3/uL (130-400); RED BLOOD COUNT 3.78 10*6/uL (4.50-5.90); WHITE BLOOD COUNT 7.1 10*3/uL (4.8-10.8)
[2020-07-16 21:08] LABS: ALBUMIN 3.4 gm/dl (3.1-4.5); ALKALINE PHOSPHATASE 148 U/L (45-117); BUN 15 mg/dl (7-24); CHLORIDE 98 mmol/L (98-107); CPK 196 U/L (39-308); CREATININE 1.32 mg/dL (0.70-1.30); LDH 243 U/L (87-241); SGOT/AST 51 IU/L (3-35); SGPT/ALT 51 U/L (12-78); SODIUM 133 mmol/L (136-145); TOTAL PROTEIN 6.9 gm/dL (6.4-8.2)
[2020-07-16 22:11] VITALS: BP 81/52
[2020-07-16 22:20] LABS: BILIRUBIN Negative (Negative); BLOOD Negative (Negative); CLARITY Clear (Clear); COLOR Yellow (Yellow); GLUCOSE 3+ (Negative); KETONE 1+ (Negative); LEUKO ESTERASE Negative (Negative); NITRITE Negative (Negative); UROBILINOGEN 0.2 E.U./dl (0.0-1.0)
[2020-07-16 22:30] LABS: BACTERIA TRACE; WBC 0-2 wbc/hpf (0-5)
[2020-07-16 23:33] VITALS: BP 102/63
[2020-07-17 00:42] VITALS: BP 106/70
[2020-07-17 01:25] VITALS: BP 113/65
[2020-07-17 06:14] LABS: BASO % 0.8 % (0.0-1.0); EOS % 0.2 % (1.0-4.0); HEMATOCRIT 33.5 % (42.0-52.0); LYMPH # 0.2 10*3/uL (1.3-4.4); LYMPH % 3.7 % (27.0-41.0); MEAN CORPUSCULAR HGB 29.4 pg (27.0-31.0); MEAN CORPUSCULAR HGB CONC 31.9 g/dl (33.0-37.0); MEAN PLATELET VOLUME 8.9 fl (9.6-12.3); MONO # 0.2 10*3/uL (0.1-1.0); MONO % 4.1 % (3.0-9.0); NEUT # 4.6 10*3/uL (2.3-7.9); NEUT % 89.8 % (47.0-73.0); PLATELET COUNT AUTOMATED 312 10*3/uL (130-400); RED BLOOD COUNT 3.64 10*6/uL (4.50-5.90); WHITE BLOOD COUNT 5.2 10*3/uL (4.8-10.8)
[2020-07-17 06:27] LABS: ALBUMIN 3.1 gm/dl (3.1-4.5); ALKALINE PHOSPHATASE 142 U/L (45-117); BUN 16 mg/dl (7-24); CHLORIDE 103 mmol/L (98-107); CPK 203 U/L (39-308); CREATININE 1.18 mg/dL (0.70-1.30); LDH 223 U/L (87-241); POTASSIUM 4.7 mmol/L (3.5-5.1); SGOT/AST 52 IU/L (3-35); SGPT/ALT 56 U/L (12-78); SODIUM 134 mmol/L (136-145); TOTAL PROTEIN 6.5 gm/dL (6.4-8.2)
[2020-07-17 08:00] VITALS: BP 124/72
[2020-07-17 16:00] VITALS: BP 104/58
[2020-07-17 19:55] VITALS: BP 110/62
[2020-07-18] VITALS: BP 135/74
[2020-07-18 06:11] LABS: BASO % 0.5 % (0.0-1.0); HEMATOCRIT 31.8 % (42.0-52.0); LYMPH # 0.9 10*3/uL (1.3-4.4); LYMPH % 21.5 % (27.0-41.0); MEAN CELL VOLUME 89.6 fl (80.0-94.0); MEAN CORPUSCULAR HGB 29.9 pg (27.0-31.0); MEAN CORPUSCULAR HGB CONC 33.3 g/dl (33.0-37.0); MEAN PLATELET VOLUME 8.8 fl (9.6-12.3); MONO # 0.7 10*3/uL (0.1-1.0); MONO % 17.8 % (3.0-9.0); NEUT # 2.4 10*3/uL (2.3-7.9); PLATELET COUNT AUTOMATED 318 10*3/uL (130-400); RED BLOOD COUNT 3.55 10*6/uL (4.50-5.90); RED CELL DISTRI WIDTH 13.6 % (0-14.5); WHITE BLOOD COUNT 4.1 10*3/uL (4.8-10.8)
[2020-07-18 06:35] LABS: ALKALINE PHOSPHATASE 143 U/L (45-117); BUN 22 mg/dl (7-24); CHLORIDE 101 mmol/L (98-107); CPK 190 U/L (39-308); CREATININE 1.09 mg/dL (0.70-1.30); LDH 208 U/L (87-241); SGOT/AST 57 IU/L (3-35); SGPT/ALT 69 U/L (12-78); SODIUM 134 mmol/L (136-145); TOTAL PROTEIN 6.2 gm/dL (6.4-8.2)
[2020-07-18 06:45] LABS: POTASSIUM 3.4 mmol/L (3.5-5.1)
[2020-07-18 08:00] VITALS: BP 127/87
[2020-07-18 12:00] VITALS: BP 152/68
[2020-07-18 16:00] VITALS: BP 110/53
[2020-07-18 20:00] VITALS: BP 130/72
[2020-07-19] VITALS: BP 124/63
[2020-07-19 06:10] LABS: BASO % 0.5 % (0.0-1.0); EOS % 0.5 % (1.0-4.0); HEMATOCRIT 34.5 % (42.0-52.0); LYMPH # 1.4 10*3/uL (1.3-4.4); LYMPH % 32.1 % (27.0-41.0); MEAN CELL VOLUME 89.6 fl (80.0-94.0); MEAN CORPUSCULAR HGB 29.4 pg (27.0-31.0); MEAN CORPUSCULAR HGB CONC 32.8 g/dl (33.0-37.0); MEAN PLATELET VOLUME 8.5 fl (9.6-12.3); MONO # 0.6 10*3/uL (0.1-1.0); MONO % 13.1 % (3.0-9.0); NEUT # 2.2 10*3/uL (2.3-7.9); NEUT % 52.6 % (47.0-73.0); PLATELET COUNT AUTOMATED 341 10*3/uL (130-400); RED BLOOD COUNT 3.85 10*6/uL (4.50-5.90); RED CELL DISTRI WIDTH 13.9 % (0-14.5); WHITE BLOOD COUNT 4.2 10*3/uL (4.8-10.8)
[2020-07-19 06:31] LABS: ALBUMIN 3.3 gm/dl (3.1-4.5); BUN 19 mg/dl (7-24); CHLORIDE 102 mmol/L (98-107); CREATININE 1.05 mg/dL (0.70-1.30); LDH 233 U/L (87-241); POTASSIUM 3.6 mmol/L (3.5-5.1); SGOT/AST 47 IU/L (3-35); SGPT/ALT 63 U/L (12-78); SODIUM 135 mmol/L (136-145); TOTAL PROTEIN 6.5 gm/dL (6.4-8.2)
[2020-07-19 06:32] LABS: ALKALINE PHOSPHATASE 134 U/L (45-117)
[2020-07-19 06:37] LABS: CPK 136 U/L (39-308)
[2020-07-19 08:00] VITALS: BP 144/68
[2020-07-19 12:00] VITALS: BP 103/72
[2020-07-19 16:00] VITALS: BP 112/77
[2020-07-19 20:00] VITALS: BP 112/70
[2020-07-19 23:58] VITALS: BP 116/88
[2020-07-20 04:00] VITALS: BP 122/72
[2020-07-20 06:53] LABS: BASO % 0.2 % (0.0-1.0); HEMATOCRIT 36.2 % (42.0-52.0); LYMPH # 1.4 10*3/uL (1.3-4.4); LYMPH % 34.7 % (27.0-41.0); MEAN CELL VOLUME 89.4 fl (80.0-94.0); MEAN CORPUSCULAR HGB 28.9 pg (27.0-31.0); MEAN CORPUSCULAR HGB CONC 32.3 g/dl (33.0-37.0); MEAN PLATELET VOLUME 8.7 fl (9.6-12.3); MONO # 0.5 10*3/uL (0.1-1.0); MONO % 11.6 % (3.0-9.0); NEUT # 2.2 10*3/uL (2.3-7.9); NEUT % 52.5 % (47.0-73.0); PLATELET COUNT AUTOMATED 352 10*3/uL (130-400); RED BLOOD COUNT 4.05 10*6/uL (4.50-5.90); RED CELL DISTRI WIDTH 13.8 % (0-14.5); WHITE BLOOD COUNT 4.2 10*3/uL (4.8-10.8)
[2020-07-20 07:32] LABS: ALBUMIN 3.3 gm/dl (3.1-4.5); BUN 18 mg/dl (7-24); CHLORIDE 101 mmol/L (98-107); CREATININE 1.08 mg/dL (0.70-1.30); LDH 194 U/L (87-241); POTASSIUM 3.4 mmol/L (3.5-5.1); SGOT/AST 27 IU/L (3-35); SGPT/ALT 53 U/L (12-78); SODIUM 135 mmol/L (136-145); TOTAL PROTEIN 6.7 gm/dL (6.4-8.2)
[2020-07-20 07:34] LABS: ALKALINE PHOSPHATASE 129 U/L (45-117)
[2020-07-20 07:35] LABS: CPK 67 U/L (39-308)
[2020-07-20 08:30] VITALS: BP 134/88
[2020-07-20 12:00] VITALS: BP 139/82
[2020-07-20] MEDS ORDERED: DECADRON4 MG PO (13:02)
== END 2020-07-20 16:39 | disposition home health service (06) | DRG 871 ==
LOC: ED 20:13 → EDHOLD 23:24 → 4E 23:24
PROVIDERS: Emergency Medicine; Family Medicine; Hospitalist; ADMIT Internal Medicine; ATTEND Internal Medicine
PROC: XW033E5 Introduction of Remdesivir Anti-infective into Peripheral Vein, Percutaneous Approach, New Technology Group 5 (ICD-10-PCS; principal; 2020-07-16)
DX: A41.9 Sepsis, unspecified organism (principal); U07.1 COVID-19; N17.0 Acute kidney failure with tubular necrosis; J12.82 Pneumonia due to coronavirus disease 2019; J96.01 Acute respiratory failure with hypoxia; E87.1 Hypo-osmolality and hyponatremia; I50.22 Chronic systolic (congestive) heart failure; I13.0 Hypertensive heart and chronic kidney disease with heart failure and stage 1 through stage 4 chronic kidney disease, or unspecified chronic kidney disease; N18.31 Chronic kidney disease, stage 3a; M81.0 Age-related osteoporosis without current pathological fracture; F31.9 Bipolar disorder, unspecified; I25.10 Atherosclerotic heart disease of native coronary artery without angina pectoris; F41.1 Generalized anxiety disorder; R26.9 Unspecified abnormalities of gait and mobility; K21.9 Gastro-esophageal reflux disease without esophagitis; G47.00 Insomnia, unspecified; D64.9 Anemia, unspecified; M51.36 Other intervertebral disc degeneration, lumbar region; I25.119 Atherosclerotic heart disease of native coronary artery with unspecified angina pectoris; E11.65 Type 2 diabetes mellitus with hyperglycemia; E11.22 Type 2 diabetes mellitus with diabetic chronic kidney disease; R74.01 Elevation of levels of liver transaminase levels; I25.2 Old myocardial infarction; Z79.82 Long term (current) use of aspirin; Z79.899 Other long term (current) drug therapy; Z88.0 Allergy status to penicillin; Z88.1 Allergy status to other antibiotic agents

== ENCOUNTER 2020-07-28 12:39 | Inpatient (IN) | payer OTHER ==
[~2020-07-28] VITALS: Ht 180.3 cm; Wt 78.6 kg
[2020-07-28] VITALS (21 sets, daily range): BP systolic 56–117; BP diastolic 28–65
[~2020-07-28 12:39] MED LIST changes: +DECADRON4 MG PO
[2020-07-28 13:24] LABS: HEMATOCRIT 36.3 % (42.0-52.0); MEAN CELL VOLUME 86.6 fl (80.0-94.0); MEAN CORPUSCULAR HGB 28.9 pg (27.0-31.0); MEAN CORPUSCULAR HGB CONC 33.3 g/dl (33.0-37.0); MEAN PLATELET VOLUME 9.5 fl (9.6-12.3); PLATELET COUNT AUTOMATED 352 10*3/uL (130-400); RED BLOOD COUNT 4.19 10*6/uL (4.50-5.90); RED CELL DISTRI WIDTH 13.7 % (0-14.5); WHITE BLOOD COUNT 12.7 10*3/uL (4.8-10.8)
[2020-07-28 13:35] LABS: ACT PARTIAL THROMBO TIME 31.1 SECONDS (20.0-32.1)
[2020-07-28 13:39] LABS: BASOPHILS 1 % (0-1); BURR CELLS FEW; PLATELET SUFFICIENCY NORMAL (NORMAL); POLYCHROMASIA SLIGHT; TOTAL CELLS COUNTED 100 #CELLS
[2020-07-28 13:42] LABS: ALBUMIN 2.7 gm/dl (3.1-4.5); CREATININE 3.9 mg/dL (0.70-1.30); POTASSIUM 4.6 mmol/L (3.5-5.1); TOTAL PROTEIN 7.4 gm/dL (6.4-8.2)
[2020-07-28 13:55] LABS: TROPONIN I 2.13 ng/ml (<0.045)
[2020-07-28 14:38] LABS: ABG BASE EXCESS -9.8 mmol/L (-2.0-2.0); ARTERIAL BLOOD GAS PH 7.305 (7.35-7.45); ARTERIAL BLOOD GAS PO2 72.8 (80-90)
[2020-07-28 16:12] LABS: BILIRUBIN Negative (Negative); BLOOD 2+ (Negative); CLARITY Cloudy (Clear); COLOR Yellow (Yellow); GLUCOSE 2+ (Negative); KETONE Trace (Negative); LEUKO ESTERASE Negative (Negative); NITRITE Negative (Negative); UROBILINOGEN 0.2 E.U./dl (0.0-1.0)
[2020-07-28 16:21] LABS: BACTERIA TRACE; WBC 0-2 wbc/hpf (0-5)
[2020-07-29] VITALS (48 sets, daily range): BP systolic 82–162; BP diastolic 40–90
[2020-07-29 04:29] LABS: BASO % 0.2 % (0.0-1.0); EOS % 0.5 % (1.0-4.0); LYMPH # 0.7 10*3/uL (1.3-4.4); MEAN CORPUSCULAR HGB 28.8 pg (27.0-31.0); MEAN CORPUSCULAR HGB CONC 31.8 g/dl (33.0-37.0); MEAN PLATELET VOLUME 9.2 fl (9.6-12.3); MONO # 0.6 10*3/uL (0.1-1.0); MONO % 6.9 % (3.0-9.0); NEUT # 7.1 10*3/uL (2.3-7.9); NEUT % 83.2 % (47.0-73.0); PLATELET COUNT AUTOMATED 286 10*3/uL (130-400); RED BLOOD COUNT 3.65 10*6/uL (4.50-5.90); RED CELL DISTRI WIDTH 14.3 % (0-14.5); WHITE BLOOD COUNT 8.5 10*3/uL (4.8-10.8)
[2020-07-29 04:35] LABS: MEAN CELL VOLUME 90.4 fl (80.0-94.0)
[2020-07-29 04:44] LABS: ALBUMIN 2.1 gm/dl (3.1-4.5); CREATININE 3.55 mg/dL (0.70-1.30); POTASSIUM 3.9 mmol/L (3.5-5.1); TOTAL PROTEIN 6.1 gm/dL (6.4-8.2)
[2020-07-29 08:05] LABS: ARTERIAL BLOOD GAS PH 7.307 (7.35-7.45); ARTERIAL BLOOD GAS PO2 67.2 (80-90)
[2020-07-29 08:07] LABS: ABG BASE EXCESS -10.9 mmol/L (-2.0-2.0)
[2020-07-29 13:15] LABS: ABG BASE EXCESS -9.8 mmol/L (-2.0-2.0); ARTERIAL BLOOD GAS PH 7.312 (7.35-7.45); ARTERIAL BLOOD GAS PO2 93.2 (80-90)
[2020-07-29 16:49] LABS: URINE CREATININE RANDOM 16.7 mg/dL
[2020-07-30] VITALS: BP 92/58
[2020-07-30 03:44] VITALS: BP 99/57
[2020-07-30 06:11] LABS: BASO % 0.2 % (0.0-1.0); HEMATOCRIT 28.8 % (42.0-52.0); LYMPH # 0.5 10*3/uL (1.3-4.4); LYMPH % 8.7 % (27.0-41.0); MEAN CELL VOLUME 87.8 fl (80.0-94.0); MEAN CORPUSCULAR HGB 29.3 pg (27.0-31.0); MEAN CORPUSCULAR HGB CONC 33.3 g/dl (33.0-37.0); MEAN PLATELET VOLUME 9.1 fl (9.6-12.3); MONO # 0.2 10*3/uL (0.1-1.0); MONO % 4.4 % (3.0-9.0); NEUT # 4.5 10*3/uL (2.3-7.9); NEUT % 85.4 % (47.0-73.0); PLATELET COUNT AUTOMATED 316 10*3/uL (130-400); RED BLOOD COUNT 3.28 10*6/uL (4.50-5.90); WHITE BLOOD COUNT 5.3 10*3/uL (4.8-10.8)
[2020-07-30 06:15] LABS: CREATININE 3.75 mg/dL (0.70-1.30); POTASSIUM 4.3 mmol/L (3.5-5.1); TOTAL PROTEIN 5.9 gm/dL (6.4-8.2)
[2020-07-30 08:00] VITALS: BP 89/49
[2020-07-30 11:13] LABS: ARTERIAL BLOOD GAS PH 7.382 (7.35-7.45)
[2020-07-30 11:35] LABS: ABG BASE EXCESS -8.6 mmol/L (-2.0-2.0)
[2020-07-30 12:00] VITALS: BP 106/53
[2020-07-30 16:00] VITALS: BP 104/52
[2020-07-30 20:00] VITALS: BP 106/69
[2020-07-31] VITALS: BP 102/71
[2020-07-31 04:00] VITALS: BP 108/64
[2020-07-31 08:00] VITALS: BP 130/81
[2020-07-31 08:10] LABS: ALBUMIN 2.3 gm/dl (3.1-4.5); CREATININE 3.07 mg/dL (0.70-1.30); POTASSIUM 4.3 mmol/L (3.5-5.1); TOTAL PROTEIN 6.5 gm/dL (6.4-8.2)
[2020-07-31 08:26] LABS: BASO % 0.3 % (0.0-1.0); HEMATOCRIT 31.4 % (42.0-52.0); LYMPH # 0.7 10*3/uL (1.3-4.4); LYMPH % 8.2 % (27.0-41.0); MEAN CELL VOLUME 87.2 fl (80.0-94.0); MEAN CORPUSCULAR HGB 29.2 pg (27.0-31.0); MEAN CORPUSCULAR HGB CONC 33.4 g/dl (33.0-37.0); MEAN PLATELET VOLUME 8.9 fl (9.6-12.3); MONO # 0.4 10*3/uL (0.1-1.0); MONO % 4.7 % (3.0-9.0); NEUT # 6.6 10*3/uL (2.3-7.9); NEUT % 84.1 % (47.0-73.0); PLATELET COUNT AUTOMATED 386 10*3/uL (130-400); RED CELL DISTRI WIDTH 14.1 % (0-14.5); WHITE BLOOD COUNT 7.9 10*3/uL (4.8-10.8)
[2020-07-31 12:00] VITALS: BP 146/60
[2020-07-31 16:00] VITALS: BP 127/72
[2020-07-31 20:00] VITALS: BP 128/67
[2020-08-01] VITALS: BP 130/75
[2020-08-01 07:12] LABS: HEMATOCRIT 28.7 % (42.0-52.0); MEAN CELL VOLUME 86.7 fl (80.0-94.0); MEAN CORPUSCULAR HGB 28.7 pg (27.0-31.0); MEAN CORPUSCULAR HGB CONC 33.1 g/dl (33.0-37.0); PLATELET COUNT AUTOMATED 381 10*3/uL (130-400); RED BLOOD COUNT 3.31 10*6/uL (4.50-5.90); RED CELL DISTRI WIDTH 14.1 % (0-14.5); WHITE BLOOD COUNT 5.2 10*3/uL (4.8-10.8)
[2020-08-01 07:46] LABS: ALBUMIN 2.3 gm/dl (3.1-4.5); POTASSIUM 3.8 mmol/L (3.5-5.1)
[2020-08-01 07:50] LABS: CREATININE 2.02 mg/dL (0.70-1.30); TOTAL PROTEIN 6.2 gm/dL (6.4-8.2)
[2020-08-01 08:00] VITALS: BP 139/89
[2020-08-01 08:28] LABS: PLATELET SUFFICIENCY NORMAL (NORMAL); POLYCHROMASIA SLIGHT; TOTAL CELLS COUNTED 100 #CELLS
[2020-08-01 12:00] VITALS: BP 101/53
[2020-08-01 16:00] VITALS: BP 138/72
[2020-08-01 20:00] VITALS: BP 148/81
[2020-08-02] VITALS: BP 150/81
[2020-08-02 04:40] LABS: HEMATOCRIT 32.2 % (42.0-52.0); MEAN CELL VOLUME 87.3 fl (80.0-94.0); MEAN CORPUSCULAR HGB 28.2 pg (27.0-31.0); MEAN CORPUSCULAR HGB CONC 32.3 g/dl (33.0-37.0); MEAN PLATELET VOLUME 8.8 fl (9.6-12.3); PLATELET COUNT AUTOMATED 377 10*3/uL (130-400); RED BLOOD COUNT 3.69 10*6/uL (4.50-5.90); RED CELL DISTRI WIDTH 14.2 % (0-14.5); WHITE BLOOD COUNT 7.3 10*3/uL (4.8-10.8)
[2020-08-02 05:01] LABS: PLATELET SUFFICIENCY NORMAL (NORMAL); TOTAL CELLS COUNTED 100 #CELLS
[2020-08-02 05:49] LABS: ALBUMIN 2.7 gm/dl (3.1-4.5); CREATININE 1.53 mg/dL (0.70-1.30); POTASSIUM 3.7 mmol/L (3.5-5.1)
[2020-08-02 05:51] LABS: TOTAL PROTEIN 6.8 gm/dL (6.4-8.2)
[2020-08-02 08:00] VITALS: BP 145/66
[2020-08-02 12:00] VITALS: BP 181/79
[2020-08-02 16:00] VITALS: BP 144/89
[2020-08-02 20:00] VITALS: BP 150/71
[2020-08-03] MEDS ORDERED: CLOPIDOGREL75 MG PO (12:00)
[2020-08-03] MEDS ORDERED: VENT7GM INH (12:00)
[2020-08-03] MEDS ORDERED: LOPRESSOR25 MG PO (12:00)
[2020-08-03] MEDS ORDERED: ATROVENT HFA12.9 GM INH (12:00)
[2020-08-03] MEDS ORDERED: MUCUS RELIEF600 MG PO ×2 (12:00)
[2020-08-03] MEDS ORDERED: DOXYCYCLINE100 M3 PO (12:10)
== END 2020-08-03 16:34 | DRG 871 ==
LOC: ED 12:39 → ICCU 14:07 → EDHOLD 14:07 → ICCU 16:00 → 4E 08-01 07:32 → 5E 08-03 08:11
PROVIDERS: Emergency Medicine; Internal Medicine Critical Care Medicine; Internal Medicine Nephrology; ADMIT Internal Medicine; ATTEND Internal Medicine
PROC: 02HV33Z Insertion of Infusion Device into Superior Vena Cava, Percutaneous Approach (ICD-10-PCS; 2020-07-28)
PROC: B548ZZA Ultrasonography of Superior Vena Cava, Guidance (ICD-10-PCS; 2020-07-28)
PROC: 5A09357 Assistance with Respiratory Ventilation, Less than 24 Consecutive Hours, Continuous Positive Airway Pressure (ICD-10-PCS; principal; 2020-07-29)
PROC: 5A09357 Assistance with Respiratory Ventilation, Less than 24 Consecutive Hours, Continuous Positive Airway Pressure (ICD-10-PCS; 2020-07-30)
DX: A41.9 Sepsis, unspecified organism (principal); R65.21 Severe sepsis with septic shock; J12.82 Pneumonia due to coronavirus disease 2019; U07.1 COVID-19; I21.4 Non-ST elevation (NSTEMI) myocardial infarction; N17.0 Acute kidney failure with tubular necrosis; J96.01 Acute respiratory failure with hypoxia; I50.23 Acute on chronic systolic (congestive) heart failure; M62.82 Rhabdomyolysis; E87.2 Acidosis; E87.1 Hypo-osmolality and hyponatremia; I13.0 Hypertensive heart and chronic kidney disease with heart failure and stage 1 through stage 4 chronic kidney disease, or unspecified chronic kidney disease; E87.8 Other disorders of electrolyte and fluid balance, not elsewhere classified; I25.10 Atherosclerotic heart disease of native coronary artery without angina pectoris; D64.9 Anemia, unspecified; M81.0 Age-related osteoporosis without current pathological fracture; F41.1 Generalized anxiety disorder; F31.9 Bipolar disorder, unspecified; G47.00 Insomnia, unspecified; N18.9 Chronic kidney disease, unspecified; E86.0 Dehydration; E11.22 Type 2 diabetes mellitus with diabetic chronic kidney disease; Z88.0 Allergy status to penicillin; Z88.1 Allergy status to other antibiotic agents; Z79.899 Other long term (current) drug therapy; Z79.82 Long term (current) use of aspirin; Z79.4 Long term (current) use of insulin; Z79.1 Long term (current) use of non-steroidal anti-inflammatories (NSAID); Z79.01 Long term (current) use of anticoagulants

== ENCOUNTER 2020-08-23 18:36 | Observation (INO) | payer OTHER ==
[~2020-08-23] VITALS: Ht 180.3 cm; Wt 71.3 kg
[~2020-08-23 18:36] MED LIST changes: +ATROVENT HFA12.9 GM INH; +CLOPIDOGREL75 MG PO; +MUCUS RELIEF600 MG PO; +VENT7GM INH
[2020-08-23 18:45] VITALS: BP 106/36
[2020-08-23 19:17] LABS: BASO # 0.1 10*3/uL (0.0-0.1); BASO % 1.2 % (0.0-1.0); EOS # 0.3 10*3/uL (0.0-0.4); EOS % 5.2 % (1.0-4.0); HEMATOCRIT 39.4 % (42.0-52.0); LYMPH # 1.5 10*3/uL (1.3-4.4); LYMPH % 22.6 % (27.0-41.0); MEAN CELL VOLUME 88.9 fl (80.0-94.0); MEAN CORPUSCULAR HGB CONC 31.5 g/dl (33.0-37.0); MEAN PLATELET VOLUME 8.6 fl (9.6-12.3); MONO # 0.7 10*3/uL (0.1-1.0); MONO % 10.2 % (3.0-9.0); NEUT # 3.9 10*3/uL (2.3-7.9); PLATELET COUNT AUTOMATED 526 10*3/uL (130-400); RED BLOOD COUNT 4.43 10*6/uL (4.50-5.90); RED CELL DISTRI WIDTH 14.2 % (0-14.5); WHITE BLOOD COUNT 6.6 10*3/uL (4.8-10.8)
[2020-08-23 19:27] LABS: ACT PARTIAL THROMBO TIME 32.8 SECONDS (20.0-32.1)
[2020-08-23 19:30] VITALS: BP 114/70
[2020-08-23 19:34] LABS: ALBUMIN 3.3 gm/dl (3.1-4.5); CREATININE 1.98 mg/dL (0.70-1.30)
[2020-08-23 19:35] LABS: BILIRUBIN Negative (Negative); BLOOD Negative (Negative); CLARITY Clear (Clear); COLOR Yellow (Yellow); GLUCOSE 3+ (Negative); KETONE Trace (Negative); LEUKO ESTERASE Negative (Negative); NITRITE Negative (Negative); UROBILINOGEN 0.2 E.U./dl (0.0-1.0)
[2020-08-23 19:55] VITALS: BP 115/61
[2020-08-23 20:09] LABS: RBC 0-2 rbc/hpf (0-2)
[2020-08-23 20:10] LABS: BACTERIA TRACE
[2020-08-23 21:40] VITALS: BP 121/76
[2020-08-23] MEDS ORDERED: LIPITOR20 MG PO (22:08)
[2020-08-23] MEDS ORDERED: JARDIANCE10 MG PO (22:11)
[2020-08-23] MEDS ORDERED: PEPCID20 MG PO (22:16)
[2020-08-24] VITALS: BP 105/58
[2020-08-24 08:00] VITALS: BP 110/71
[2020-08-24 10:32] LABS: CREATININE 1.62 mg/dL (0.70-1.30); POTASSIUM 3.9 mmol/L (3.5-5.1)
[2020-08-24 12:00] VITALS: BP 113/57
[2020-08-24 16:00] VITALS: BP 109/50
[2020-08-24 20:00] VITALS: BP 97/70
[2020-08-25 00:23] VITALS: BP 105/76
[2020-08-25 06:11] LABS: CREATININE 1.43 mg/dL (0.70-1.30); POTASSIUM 3.7 mmol/L (3.5-5.1)
[2020-08-25 08:00] VITALS: BP 104/72
[2020-08-25 10:16] LABS: CREATININE 1.47 mg/dL (0.70-1.30); POTASSIUM 3.9 mmol/L (3.5-5.1)
[2020-08-25 12:00] VITALS: BP 100/78
[2020-08-25 16:00] VITALS: BP 105/70
[2020-08-25 20:00] VITALS: BP 98/63
[2020-08-26] VITALS: BP 98/63
[2020-08-26 06:16] LABS: BASO # 0.1 10*3/uL (0.0-0.1); BASO % 1.6 % (0.0-1.0); EOS # 0.2 10*3/uL (0.0-0.4); EOS % 4.1 % (1.0-4.0); HEMATOCRIT 36.5 % (42.0-52.0); LYMPH # 1.2 10*3/uL (1.3-4.4); LYMPH % 19.8 % (27.0-41.0); MEAN CELL VOLUME 88.2 fl (80.0-94.0); MEAN CORPUSCULAR HGB 27.5 pg (27.0-31.0); MEAN CORPUSCULAR HGB CONC 31.2 g/dl (33.0-37.0); MEAN PLATELET VOLUME 8.8 fl (9.6-12.3); MONO # 0.6 10*3/uL (0.1-1.0); MONO % 10.3 % (3.0-9.0); NEUT # 3.6 10*3/uL (2.3-7.9); NEUT % 62.3 % (47.0-73.0); PLATELET COUNT AUTOMATED 461 10*3/uL (130-400); RED BLOOD COUNT 4.14 10*6/uL (4.50-5.90); WHITE BLOOD COUNT 5.8 10*3/uL (4.8-10.8)
[2020-08-26 06:44] LABS: BUN 9 mg/dl (7-24); CHLORIDE 104 mmol/L (98-107); CREATININE 1.33 mg/dL (0.70-1.30); POTASSIUM 3.7 mmol/L (3.5-5.1); SODIUM 139 mmol/L (136-145)
[2020-08-26 08:00] VITALS: BP 132/58
[2020-08-26 09:55] LABS: CREATININE 1.48 mg/dL (0.70-1.30); POTASSIUM 3.8 mmol/L (3.5-5.1)
[2020-08-26 12:00] VITALS: BP 105/71
[2020-08-26 16:00] VITALS: BP 97/50
[2020-08-26 20:00] VITALS: BP 130/72
[2020-08-27] VITALS: BP 110/75
[2020-08-27 06:12] LABS: BUN 10 mg/dl (7-24); CHLORIDE 104 mmol/L (98-107); POTASSIUM 3.8 mmol/L (3.5-5.1); SODIUM 136 mmol/L (136-145)
[2020-08-27 07:30] VITALS: BP 120/78
[2020-08-27 11:48] VITALS: BP 130/60
== END 2020-08-27 14:31 ==
LOC: ED 18:36 → 4E 20:41 → EDHOLD 20:41 → 4E 21:05
PROVIDERS: Internal Medicine; Nurse Practitioner; ADMIT Internal Medicine; ATTEND Internal Medicine
DX: R41.82 Altered mental status, unspecified (principal); G93.41 Metabolic encephalopathy; J44.9 Chronic obstructive pulmonary disease, unspecified; M81.0 Age-related osteoporosis without current pathological fracture; F41.1 Generalized anxiety disorder; R62.7 Adult failure to thrive; I25.10 Atherosclerotic heart disease of native coronary artery without angina pectoris; I50.33 Acute on chronic diastolic (congestive) heart failure; E78.5 Hyperlipidemia, unspecified; I12.9 Hypertensive chronic kidney disease with stage 1 through stage 4 chronic kidney disease, or unspecified chronic kidney disease; E11.22 Type 2 diabetes mellitus with diabetic chronic kidney disease; N18.9 Chronic kidney disease, unspecified; F31.9 Bipolar disorder, unspecified; F25.9 Schizoaffective disorder, unspecified; I25.2 Old myocardial infarction; Z79.82 Long term (current) use of aspirin; Z79.01 Long term (current) use of anticoagulants; Z79.899 Other long term (current) drug therapy; Z86.19 Personal history of other infectious and parasitic diseases

== ENCOUNTER 2020-09-12 01:55 | Inpatient (IN) | payer OTHER ==
[~2020-09-12] VITALS: Ht 180.3 cm; Wt 74.4 kg
[2020-09-12] VITALS (36 sets, daily range): BP systolic 77–143; BP diastolic 41–82
[~2020-09-12 01:55] MED LIST changes: +JARDIANCE10 MG PO; +LIPITOR20 MG PO; +PEPCID20 MG PO
[2020-09-12 02:25] LABS: BASO # 0.1 10*3/uL (0.0-0.1); EOS % 0.1 % (1.0-4.0); HEMATOCRIT 33.6 % (42.0-52.0); LYMPH # 0.8 10*3/uL (1.3-4.4); MEAN CELL VOLUME 86.8 fl (80.0-94.0); MEAN CORPUSCULAR HGB 28.2 pg (27.0-31.0); MEAN CORPUSCULAR HGB CONC 32.4 g/dl (33.0-37.0); MEAN PLATELET VOLUME 9.4 fl (9.6-12.3); MONO # 0.5 10*3/uL (0.1-1.0); NEUT # 5.5 10*3/uL (2.3-7.9); NEUT % 80.2 % (47.0-73.0); PLATELET COUNT AUTOMATED 315 10*3/uL (130-400); RED BLOOD COUNT 3.87 10*6/uL (4.50-5.90); RED CELL DISTRI WIDTH 14.7 % (0-14.5); WHITE BLOOD COUNT 6.9 10*3/uL (4.8-10.8)
[2020-09-12 02:36] LABS: ACT PARTIAL THROMBO TIME 31.9 SECONDS (20.0-32.1); INTERNATIONAL NORM RATIO 1.1 (2.0-3.5)
[2020-09-12 02:40] LABS: ALBUMIN 2.9 gm/dl (3.1-4.5); CREATININE 1.48 mg/dL (0.70-1.30); POTASSIUM 3.8 mmol/L (3.5-5.1); TOTAL PROTEIN 6.6 gm/dL (6.4-8.2)
[2020-09-12 06:20] LABS: BILIRUBIN Negative (Negative); BLOOD 1+ (Negative); CLARITY Cloudy (Clear); COLOR Yellow (Yellow); GLUCOSE 3+ (Negative); KETONE 1+ (Negative); LEUKO ESTERASE Negative (Negative); NITRITE Negative (Negative); SPECIFIC GRAVITY >= 1.030 (1.001-1.030)
[2020-09-12 06:34] LABS: MUCOUS TRACE
[2020-09-12] MEDS ORDERED: MEGESTROL400 MG/10 PO (10:49)
[2020-09-12] MEDS ORDERED: KLONOPIN1 M1 PO (10:50)
[2020-09-12] MEDS ORDERED: LAMICTAL100 MG PO (10:51)
[2020-09-13] VITALS (7 sets, daily range): BP systolic 101–140; BP diastolic 53–80
[2020-09-13 06:02] LABS: ALBUMIN 2.6 gm/dl (3.1-4.5); ALKALINE PHOSPHATASE 94 U/L (45-117); BUN 12 mg/dl (7-24); CHLORIDE 110 mmol/L (98-107); CREATININE 1.03 mg/dL (0.70-1.30); POTASSIUM 3.6 mmol/L (3.5-5.1); SGOT/AST 37 IU/L (3-35); SGPT/ALT 20 U/L (12-78); SODIUM 140 mmol/L (136-145)
[2020-09-13 06:07] LABS: BASO % 0.6 % (0.0-1.0); EOS # 0.4 10*3/uL (0.0-0.4); EOS % 7.9 % (1.0-4.0); HEMATOCRIT 32.3 % (42.0-52.0); LYMPH # 0.8 10*3/uL (1.3-4.4); LYMPH % 15.9 % (27.0-41.0); MEAN CELL VOLUME 88.7 fl (80.0-94.0); MEAN CORPUSCULAR HGB 27.7 pg (27.0-31.0); MEAN CORPUSCULAR HGB CONC 31.3 g/dl (33.0-37.0); MEAN PLATELET VOLUME 9.6 fl (9.6-12.3); MONO # 0.5 10*3/uL (0.1-1.0); MONO % 10.3 % (3.0-9.0); NEUT # 3.4 10*3/uL (2.3-7.9); NEUT % 64.7 % (47.0-73.0); PLATELET COUNT AUTOMATED 281 10*3/uL (130-400); RED BLOOD COUNT 3.64 10*6/uL (4.50-5.90); RED CELL DISTRI WIDTH 14.7 % (0-14.5); THYROID STIM HORMONE (HS) 0.979 uIU/ml (0.358-4.75); WHITE BLOOD COUNT 5.2 10*3/uL (4.8-10.8)
[2020-09-14] VITALS: BP 99/57
[2020-09-14 06:01] LABS: BUN 12 mg/dl (7-24); CHLORIDE 114 mmol/L (98-107); CREATININE 1.06 mg/dL (0.70-1.30); POTASSIUM 3.7 mmol/L (3.5-5.1); SODIUM 143 mmol/L (136-145)
[2020-09-14 06:25] LABS: BASO % 0.9 % (0.0-1.0); EOS # 0.3 10*3/uL (0.0-0.4); EOS % 7.2 % (1.0-4.0); HEMATOCRIT 30.1 % (42.0-52.0); LYMPH # 0.9 10*3/uL (1.3-4.4); LYMPH % 18.5 % (27.0-41.0); MEAN CELL VOLUME 90.4 fl (80.0-94.0); MEAN CORPUSCULAR HGB 27.6 pg (27.0-31.0); MEAN CORPUSCULAR HGB CONC 30.6 g/dl (33.0-37.0); MEAN PLATELET VOLUME 9.4 fl (9.6-12.3); MONO # 0.5 10*3/uL (0.1-1.0); MONO % 11.3 % (3.0-9.0); NEUT # 2.9 10*3/uL (2.3-7.9); NEUT % 61.7 % (47.0-73.0); PLATELET COUNT AUTOMATED 281 10*3/uL (130-400); RED BLOOD COUNT 3.33 10*6/uL (4.50-5.90); RED CELL DISTRI WIDTH 14.7 % (0-14.5); WHITE BLOOD COUNT 4.7 10*3/uL (4.8-10.8)
[2020-09-14 08:00] VITALS: BP 120/90; BP 131/67
[2020-09-14 12:00] VITALS: BP 127/60
[2020-09-14 16:00] VITALS: BP 105/59
[2020-09-14 20:00] VITALS: BP 114/54
[2020-09-15] VITALS: BP 128/70
[2020-09-15 08:00] VITALS: BP 140/70
[2020-09-15 12:00] VITALS: BP 128/71
[2020-09-15 16:00] VITALS: BP 116/61
[2020-09-15 20:00] VITALS: BP 120/56
[2020-09-16] VITALS: BP 103/55
[2020-09-16 08:00] VITALS: BP 132/78
[2020-09-16 12:04] VITALS: BP 114/57
[2020-09-16 16:00] VITALS: BP 122/64
[2020-09-16 20:00] VITALS: BP 125/60
[2020-09-17 08:07] VITALS: BP 120/70
[2020-09-17 12:08] VITALS: BP 125/68
[2020-09-17 16:00] VITALS: BP 117/63
[2020-09-17] MEDS ORDERED: DOXYCYCLINE100 M3 PO (17:52)
== END 2020-09-17 19:25 | DRG 871 ==
LOC: ED 01:55 → EDHOLD 06:41 → 4E 06:41 → ICCU 06:41 → EDHOLD 07:16 → ICCU 19:19 → 4E 09-13 14:27
PROVIDERS: Emergency Medicine; Hospitalist; Internal Medicine; ADMIT Internal Medicine; ATTEND Internal Medicine
PROC: BD11YZZ Fluoroscopy of Esophagus using Other Contrast (ICD-10-PCS; principal; 2020-09-13)
DX: A41.9 Sepsis, unspecified organism (principal); N17.0 Acute kidney failure with tubular necrosis; G93.41 Metabolic encephalopathy; J69.0 Pneumonitis due to inhalation of food and vomit; R65.21 Severe sepsis with septic shock; E11.65 Type 2 diabetes mellitus with hyperglycemia; I25.10 Atherosclerotic heart disease of native coronary artery without angina pectoris; F31.9 Bipolar disorder, unspecified; M81.0 Age-related osteoporosis without current pathological fracture; I95.9 Hypotension, unspecified; K21.9 Gastro-esophageal reflux disease without esophagitis; F41.1 Generalized anxiety disorder; M51.37 Other intervertebral disc degeneration, lumbosacral region; D64.9 Anemia, unspecified; E78.2 Mixed hyperlipidemia; J84.10 Pulmonary fibrosis, unspecified; E86.1 Hypovolemia; E86.0 Dehydration; Z20.822 Contact with and (suspected) exposure to COVID-19; Z88.0 Allergy status to penicillin; Z88.1 Allergy status to other antibiotic agents; Z79.82 Long term (current) use of aspirin; Z79.51 Long term (current) use of inhaled steroids; I25.2 Old myocardial infarction; Z79.4 Long term (current) use of insulin; Z79.899 Other long term (current) drug therapy; Z79.1 Long term (current) use of non-steroidal anti-inflammatories (NSAID)

== ENCOUNTER 2020-10-03 11:16 | Inpatient (IN) | payer OTHER ==
[~2020-10-03] VITALS: Ht 154.9 cm; Wt 73.0 kg
[~2020-10-03 11:16] MED LIST changes: +MEGESTROL400 MG/10 PO
[2020-10-03 11:26] VITALS: BP 145/72
[2020-10-03 11:44] LABS: BASO # 0.1 10*3/uL (0.0-0.1); BASO % 0.8 % (0.0-1.0); EOS # 0.2 10*3/uL (0.0-0.4); EOS % 2.8 % (1.0-4.0); HEMATOCRIT 38.1 % (42.0-52.0); LYMPH # 0.8 10*3/uL (1.3-4.4); LYMPH % 12.5 % (27.0-41.0); MEAN CELL VOLUME 86.8 fl (80.0-94.0); MEAN CORPUSCULAR HGB 27.8 pg (27.0-31.0); MEAN PLATELET VOLUME 9.9 fl (9.6-12.3); MONO # 0.5 10*3/uL (0.1-1.0); MONO % 6.9 % (3.0-9.0); NEUT % 76.7 % (47.0-73.0); PLATELET COUNT AUTOMATED 401 10*3/uL (130-400); RED BLOOD COUNT 4.39 10*6/uL (4.50-5.90); WHITE BLOOD COUNT 6.5 10*3/uL (4.8-10.8)
[2020-10-03 11:55] LABS: ACT PARTIAL THROMBO TIME 27.9 SECONDS (20.0-32.1)
[2020-10-03 12:02] LABS: ALBUMIN 3.9 gm/dl (3.1-4.5); ALKALINE PHOSPHATASE 96 U/L (45-117); BUN 17 mg/dl (7-24); CHLORIDE 111 mmol/L (98-107); CREATININE 1.29 mg/dL (0.70-1.30); POTASSIUM 4.2 mmol/L (3.5-5.1); SGOT/AST 16 IU/L (3-35); SGPT/ALT 18 U/L (12-78); SODIUM 141 mmol/L (136-145); TOTAL PROTEIN 7.7 gm/dL (6.4-8.2)
[2020-10-03 12:11] LABS: TROPONIN I < 0.015 ng/ml (<0.045)
[2020-10-03 12:15] LABS: BILIRUBIN Negative (Negative); BLOOD Negative (Negative); CLARITY Clear (Clear); COLOR Yellow (Yellow); GLUCOSE 3+ (Negative); KETONE 1+ (Negative); LEUKO ESTERASE Negative (Negative); NITRITE Negative (Negative); SPECIFIC GRAVITY >= 1.030 (1.001-1.030)
[2020-10-03 12:43] LABS: BACTERIA 1+; EPITHELIAL CELLS 0-2
[2020-10-03 12:54] VITALS: BP 129/77
[2020-10-03 16:21] VITALS: BP 126/78
[2020-10-03 18:41] VITALS: BP 146/58
[2020-10-03 20:00] VITALS: BP 122/67
[2020-10-04] VITALS: BP 130/76
[2020-10-04 06:23] LABS: CHLORIDE 115 mmol/L (98-107); POTASSIUM 3.7 mmol/L (3.5-5.1); SODIUM 141 mmol/L (136-145)
[2020-10-04 06:33] LABS: BASO # 0.1 10*3/uL (0.0-0.1); BASO % 0.9 % (0.0-1.0); EOS # 0.2 10*3/uL (0.0-0.4); EOS % 3.8 % (1.0-4.0); HEMATOCRIT 35.6 % (42.0-52.0); LYMPH # 1.1 10*3/uL (1.3-4.4); LYMPH % 19.2 % (27.0-41.0); MEAN CORPUSCULAR HGB 27.6 pg (27.0-31.0); MEAN CORPUSCULAR HGB CONC 30.6 g/dl (33.0-37.0); MEAN PLATELET VOLUME 10.1 fl (9.6-12.3); MONO # 0.3 10*3/uL (0.1-1.0); MONO % 5.8 % (3.0-9.0); NEUT # 3.9 10*3/uL (2.3-7.9); NEUT % 69.9 % (47.0-73.0); PLATELET COUNT AUTOMATED 342 10*3/uL (130-400); RED BLOOD COUNT 3.95 10*6/uL (4.50-5.90); RED CELL DISTRI WIDTH 14.8 % (0-14.5); WHITE BLOOD COUNT 5.5 10*3/uL (4.8-10.8)
[2020-10-04 06:36] LABS: ALBUMIN 3.2 gm/dl (3.1-4.5); ALKALINE PHOSPHATASE 78 U/L (45-117); BUN 12 mg/dl (7-24); CREATININE 0.96 mg/dL (0.70-1.30); IRON 71 ug/dL (65-175); PREALBUMIN 17 mg/dl (20-40); SGOT/AST 15 IU/L (3-35); SGPT/ALT 14 U/L (12-78); TOTAL IRON BINDING CAPACITY 493 ug/dl (250-450); TOTAL PROTEIN 6.3 gm/dL (6.4-8.2)
[2020-10-04 06:42] LABS: MEAN CELL VOLUME 90.1 fl (80.0-94.0)
[2020-10-04 08:00] VITALS: BP 148/62
[2020-10-04 08:22] LABS: VITAMIN D, 25-HYDROXY 51.3 ng/mL (30-100)
[2020-10-04 12:00] VITALS: BP 110/73
[2020-10-04 16:00] VITALS: BP 120/78
[2020-10-05] VITALS: BP 126/80
[2020-10-05 06:38] LABS: BUN 9 mg/dl (7-24); CHLORIDE 113 mmol/L (98-107); CREATININE 0.95 mg/dL (0.70-1.30); POTASSIUM 3.7 mmol/L (3.5-5.1); SODIUM 141 mmol/L (136-145)
[2020-10-05 06:41] LABS: BASO # 0.1 10*3/uL (0.0-0.1); BASO % 0.8 % (0.0-1.0); EOS # 0.3 10*3/uL (0.0-0.4); EOS % 4.4 % (1.0-4.0); HEMATOCRIT 37.9 % (42.0-52.0); LYMPH # 1.3 10*3/uL (1.3-4.4); LYMPH % 21.8 % (27.0-41.0); MEAN CELL VOLUME 88.3 fl (80.0-94.0); MEAN CORPUSCULAR HGB CONC 30.6 g/dl (33.0-37.0); MEAN PLATELET VOLUME 9.9 fl (9.6-12.3); MONO # 0.4 10*3/uL (0.1-1.0); MONO % 6.4 % (3.0-9.0); NEUT # 3.9 10*3/uL (2.3-7.9); NEUT % 66.4 % (47.0-73.0); PLATELET COUNT AUTOMATED 345 10*3/uL (130-400); RED BLOOD COUNT 4.29 10*6/uL (4.50-5.90); RED CELL DISTRI WIDTH 14.8 % (0-14.5); WHITE BLOOD COUNT 5.9 10*3/uL (4.8-10.8)
[2020-10-05 08:00] VITALS: BP 155/83
[2020-10-05 12:00] VITALS: BP 116/69
[2020-10-05] MEDS ORDERED: LANTUS SOL100 UNIT/1 SC (15:54)
[2020-10-05] MEDS ORDERED: KLONOPIN0.5 MG PO (15:54)
[2020-10-05] MEDS ORDERED: FEROSUL325 MG PO (15:54)
[2020-10-05 16:00] VITALS: BP 160/68
== END 2020-10-05 17:05 | DRG 640 ==
LOC: ED 11:16 → 5E 14:45 → EDHOLD 14:45 → 5E 18:04
PROVIDERS: Emergency Medicine; Student in an Organized Health Care Education/Training Program; ADMIT Internal Medicine; ATTEND Internal Medicine
DX: E86.9 Volume depletion, unspecified (principal); G93.41 Metabolic encephalopathy; I50.22 Chronic systolic (congestive) heart failure; F32.9 Major depressive disorder, single episode, unspecified; E86.0 Dehydration; E83.41 Hypermagnesemia; M81.0 Age-related osteoporosis without current pathological fracture; I25.10 Atherosclerotic heart disease of native coronary artery without angina pectoris; K21.9 Gastro-esophageal reflux disease without esophagitis; D64.9 Anemia, unspecified; E11.65 Type 2 diabetes mellitus with hyperglycemia; I11.0 Hypertensive heart disease with heart failure; F41.1 Generalized anxiety disorder; G47.00 Insomnia, unspecified; E87.8 Other disorders of electrolyte and fluid balance, not elsewhere classified; R63.4 Abnormal weight loss; R41.0 Disorientation, unspecified; Z79.4 Long term (current) use of insulin; Z88.1 Allergy status to other antibiotic agents; Z88.0 Allergy status to penicillin; Z68.20 Body mass index [BMI] 20.0-20.9, adult

== ENCOUNTER 2020-10-05 12:20 | Inpatient (IN) | payer OTHER ==
[~2020-10-05] VITALS: Ht 180.3 cm; Wt 65.8 kg
[2020-10-05] MEDS ORDERED: LANTUS SOL100 UNIT/1 SC (15:54)
[2020-10-05] MEDS ORDERED: KLONOPIN0.5 MG PO (15:54)
[2020-10-05] MEDS ORDERED: FEROSUL325 MG PO (15:54)
[2020-10-05 17:19] VITALS: BP 137/78
[2020-10-05 19:07] VITALS: BP 152/62
[2020-10-05 20:00] VITALS: BP 152/62
[2020-10-06 07:00] LABS: BASO % 0.7 % (0.0-1.0); EOS # 0.3 10*3/uL (0.0-0.4); EOS % 4.5 % (1.0-4.0); LYMPH # 1.1 10*3/uL (1.3-4.4); LYMPH % 18.4 % (27.0-41.0); MEAN CORPUSCULAR HGB 27.5 pg (27.0-31.0); MEAN CORPUSCULAR HGB CONC 31.6 g/dl (33.0-37.0); MEAN PLATELET VOLUME 9.5 fl (9.6-12.3); MONO # 0.5 10*3/uL (0.1-1.0); MONO % 8.2 % (3.0-9.0); NEUT # 3.9 10*3/uL (2.3-7.9); NEUT % 67.9 % (47.0-73.0); PLATELET COUNT AUTOMATED 336 10*3/uL (130-400); RED BLOOD COUNT 4.37 10*6/uL (4.50-5.90); RED CELL DISTRI WIDTH 14.7 % (0-14.5); WHITE BLOOD COUNT 5.8 10*3/uL (4.8-10.8)
[2020-10-06 07:21] LABS: CHLORIDE 111 mmol/L (98-107); POTASSIUM 3.8 mmol/L (3.5-5.1); SODIUM 143 mmol/L (136-145)
[2020-10-06 07:39] LABS: ALBUMIN 3.6 gm/dl (3.1-4.5); ALKALINE PHOSPHATASE 87 U/L (45-117); BUN 9 mg/dl (7-24); CHOLESTEROL 145 mg/dL (<200); CREATININE 0.94 mg/dL (0.70-1.30); LDL CHOLESTEROL 74 mg/dL (9-159); SGOT/AST 12 IU/L (3-35); SGPT/ALT 13 U/L (12-78); TOTAL PROTEIN 7.1 gm/dL (6.4-8.2); TRIGLYCERIDES 130 mg/dl (<150)
[2020-10-06 07:44] VITALS: BP 134/63
[2020-10-06 07:58] LABS: VITAMIN D, 25-HYDROXY 42.7 ng/mL (30-100)
[2020-10-06 20:00] VITALS: BP 119/65
[2020-10-07 07:40] VITALS: BP 126/62
[2020-10-07 07:41] LABS: BUN 11 mg/dl (7-24); CHLORIDE 111 mmol/L (98-107); CREATININE 0.98 mg/dL (0.70-1.30); POTASSIUM 3.5 mmol/L (3.5-5.1); SODIUM 142 mmol/L (136-145)
[2020-10-07 07:42] LABS: PREALBUMIN 19 mg/dl (20-40)
[2020-10-07 20:00] VITALS: BP 121/67
[2020-10-08 07:37] VITALS: BP 136/68
[2020-10-08 20:35] VITALS: BP 115/68
[2020-10-09 07:27] VITALS: BP 106/62
[2020-10-09 20:10] VITALS: BP 120/70
[2020-10-10 07:41] VITALS: BP 115/81
[2020-10-10 20:00] VITALS: BP 118/84
[2020-10-11 07:25] VITALS: BP 114/75
[2020-10-11 20:00] VITALS: BP 147/97
[2020-10-12 07:16] VITALS: BP 118/80
[2020-10-12 20:00] VITALS: BP 133/73
[2020-10-13 07:31] VITALS: BP 127/87
[2020-10-13 20:00] VITALS: BP 122/80
[2020-10-14 07:16] VITALS: BP 133/80
[2020-10-14 20:00] VITALS: BP 128/75
[2020-10-15 07:03] LABS: BUN 10 mg/dl (7-24); CHLORIDE 110 mmol/L (98-107); CREATININE 0.97 mg/dL (0.70-1.30); POTASSIUM 3.3 mmol/L (3.5-5.1); SODIUM 142 mmol/L (136-145)
[2020-10-15 07:10] VITALS: BP 148/78
[2020-10-15 20:00] VITALS: BP 109/69
[2020-10-16 07:26] VITALS: BP 140/70
[2020-10-16 20:00] VITALS: BP 129/66
[2020-10-17 07:28] VITALS: BP 114/63
[2020-10-17] MEDS ORDERED: TEMAZEPAM15 M1 PO (09:22)
[2020-10-17] MEDS ORDERED: MEMANTINE HCL10 MG PO (09:22)
[2020-10-17] MEDS ORDERED: MIRTAZAPINE15 M2 PO (09:22)
[2020-10-17] MEDS ORDERED: RIVASTIGMINE1 EAC2 T (09:22)
[2020-10-17] MEDS ORDERED: HOMEMED PO (09:22)
[2020-10-17 20:00] VITALS: BP 131/80
[2020-10-18 07:26] VITALS: BP 131/88
== END 2020-10-18 16:55 | DRG 885 ==
LOC: 3N 12:20
PROVIDERS: Internal Medicine; ADMIT Psychiatry & Neurology Psychiatry; ATTEND Psychiatry & Neurology Psychiatry
DX: F31.5 Bipolar disorder, current episode depressed, severe, with psychotic features (principal); I11.0 Hypertensive heart disease with heart failure; I50.20 Unspecified systolic (congestive) heart failure; M81.0 Age-related osteoporosis without current pathological fracture; I25.10 Atherosclerotic heart disease of native coronary artery without angina pectoris; F41.1 Generalized anxiety disorder; K21.9 Gastro-esophageal reflux disease without esophagitis; Z20.822 Contact with and (suspected) exposure to COVID-19; R29.6 Repeated falls; F51.01 Primary insomnia; E11.69 Type 2 diabetes mellitus with other specified complication; G30.9 Alzheimer's disease, unspecified; R41.0 Disorientation, unspecified; G20 Parkinson's disease; E87.6 Hypokalemia; F02.80 Dementia in other diseases classified elsewhere, unspecified severity, without behavioral disturbance, psychotic disturbance, mood disturbance, and anxiety; E55.9 Vitamin D deficiency, unspecified; Z88.8 Allergy status to other drugs, medicaments and biological substances; Z88.0 Allergy status to penicillin; Z88.1 Allergy status to other antibiotic agents; Z79.4 Long term (current) use of insulin

== ENCOUNTER → 2021-10-09 | Day surgery (SDC) | payer OTHER ==
[~2021-10-09] VITALS: Ht 180.3 cm; Wt 83.0 kg
[~2021-10-09] MED LIST changes: +AMITRIPTYLINE50 MG PO; +AMLODIPINE BESYL5 MG PO; +CYMBALTA20 M1 PO; +DIURETIC SOFTGE50 MG PO; +FEROSUL325 MG PO; +FUROSEMIDE20 M1 PO; +HOMEMED PO; +KLONOPIN0.5 MG PO; +MEMANTINE HCL10 MG PO; +MIRTAZAPINE15 M2 PO; +NUPLAZID34 MG PO; +RIVASTIGMINE1 EAC2 T; +SEPTDS PO; +TEMAZEPAM15 M1 PO; +VANCOMYCIN HCL250 MG PO; +Vitamin D (1,000 UNI PO
[2021-10-09 07:20] VITALS: BP 114/71
[2021-10-09 08:31] VITALS: BP 122/60
[2021-10-09 08:46] VITALS: BP 122/64
== END | disposition home or self-care (01) ==
LOC: SDC 10-04 12:30
PROVIDERS: ATTEND Ophthalmology
DX: H25.812 Combined forms of age-related cataract, left eye (principal); I25.10 Atherosclerotic heart disease of native coronary artery without angina pectoris; I10 Essential (primary) hypertension; E11.9 Type 2 diabetes mellitus without complications; M19.90 Unspecified osteoarthritis, unspecified site; G47.00 Insomnia, unspecified; F31.9 Bipolar disorder, unspecified; I25.2 Old myocardial infarction; F41.9 Anxiety disorder, unspecified; Z79.899 Other long term (current) drug therapy; Z88.1 Allergy status to other antibiotic agents

== ENCOUNTER → 2021-11-06 | Day surgery (SDC) | payer OTHER ==
[~2021-11-06] VITALS: Ht 180.3 cm; Wt 83.0 kg
[2021-11-06 07:30] VITALS: BP 163/75
[2021-11-06 09:05] VITALS: BP 132/76
[2021-11-06 09:20] VITALS: BP 120/67
[2021-11-06 09:33] VITALS: BP 143/83
== END | disposition home or self-care (01) ==
LOC: SDC 11-01 09:30
PROVIDERS: ATTEND Ophthalmology
DX: E11.36 Type 2 diabetes mellitus with diabetic cataract (principal); H25.811 Combined forms of age-related cataract, right eye; I25.10 Atherosclerotic heart disease of native coronary artery without angina pectoris; I10 Essential (primary) hypertension; G47.00 Insomnia, unspecified; F31.9 Bipolar disorder, unspecified; M19.90 Unspecified osteoarthritis, unspecified site; F40.00 Agoraphobia, unspecified; Z88.0 Allergy status to penicillin; Z88.1 Allergy status to other antibiotic agents; Z79.899 Other long term (current) drug therapy